=== PATIENT | male | born 1935 | race Caucasian/White ===

== ENCOUNTER → 2017-10-18 08:12 | Day surgery (SDC) | payer MEDICARE, OTHER ==
[~2017-10-18 08:12] MED LIST: Diazepam TAB(*) 5 MG ONE; Heparin 2 UNITS/ML IVPREMIX* 3,000 ML IV ONE; Heparin(*) 1000 UNIT/ML 10 ML VIAL CATH LAB IV ONE; Iodixanol* (CONTRAST) 320 MG/ML 100 ML SDV ONE; Lidocaine 1%* 5 ML VIAL ONE; Midazolam* 1 MG/ML 10 ML VIAL (10 MG) ONE; NS 0.9% 1000 ML* 1,000 ML IV SCH; VERAPAMIL 2.5 MG/ML 2 ML VIAL ** 5 mg/2 ml ONE; fentaNYL* 50 MCG/ML 2 ML VIAL (100 MCG VIAL) ONE; nitroGLYCERIN DRIP* 25,000 MCG/250 ML BTL ONE
--- NOTE | 2017-10-19 14:37 | CATH ---
CC: Isai Mccracken MD of [facility]; Mann Rahman of [facility]; Dr. Silvio Rcohe III, MD. CARDIAC CATHETERIZATION: DATE OF PROCEDURE: 10/18/2017 INDICATION FOR THE PROCEDURE: Asked by Dr. Isai Mccracken to perform diagnostic coronary arteriography in patient in workup for TAVR procedure. PROCEDURE: Coronary arteriography via right radial artery approach. PREPROCEDURE BLOOD TEST RESULTS: Hemoglobin and hematocrit of 14 and 41 with a platelet count of 206,000. BUN and creatinine of 30 and 1.2. Sodium 140, potassium of 4.4, chloride 102, bicarb 28. EQUIPMENTS UTILIZED: 1. Right radial artery sheath: A 6-German Glidesheath. 2. Diagnostic coronary catheter with a 5-German 4 curved TIG catheter and a 5- German 3.5 FL left diagnostic catheter, a 5-German IL 3.5 curved Heartrail III catheter. 3. The guidewires utilized included a 260 length Rahman curved guidewire and a 145 length Wholey wire. MEDICATIONS GIVEN: Included radial artery cocktail including 3 mg of verapamil , 300 mcg of nitroglycerin and 3000 units of heparin intraarterial. The patient was interviewed and examined in the holding area where the risks and benefits were explained. The right radial artery was assessed under ultrasound and found to be of a size approachable for the procedure. DESCRIPTION OF PROCEDURE: The patient was brought to the cardiovascular laboratory where a formal time-out was performed. The patient was prepped and draped in sterile fashion. Right radial artery was anesthetized with 1% lidocaine and under ultrasound guidance, the right radial artery was cannulated and the sheath was placed. Of note, there was tortuosity seen within the brachial area and a subclavian area necessitating utilizing theWholey wire to get the catheters into the ascending aorta. Catheter exchanges were made via exchange length Rahman wire. The left coronary artery had to be eventually cannulated utilizing a 5-German Heartrail III IL 3.5 curved guide catheter. At the end of the case, the catheter and sheath removed and hemostasis was obtained with a Vasc Band, the reverse Barbeau was a B. The total contrast used was a 125 cc of Visipaque dye. The radiation exposure included 13.8 minutes of fluoro time. The air kerma radiation was 2129 milligray. The DAP radiation was 12,614 microgray per meter square. RESULTS: CORONARY ARTERIOGRAPHY: A. Right coronary artery: The right coronary artery supplied several acute marginal branches with collateral blood flow seen from one acute marginal branch down to an artery of the inferior surface of the heart that may indeed be the posterior descending artery. It is unclear whether or not the right coronary artery appears as a dominate vessel. Proximal portion of the right coronary artery had moderate to significant disease with a proximal stenosis of as much as 70% in its worst view. This led to an area of aneurysmal dilatation proximally before the first moderate size acute marginal branch, which was the one that supplied collateral blood flow to the vessel on the inferior surface of the heart. The continuation of the right coronary artery after this point had moderate disease with an area of 35 to 40% narrowing noted right after a second acute marginal branch. The artery ended in a low lying acute marginal branch. As mentioned, it is unclear whether or not this was a right dominate system with a total occlusion somewhere along its course versus left dominate system. B. Left coronary artery: 1. Left Main: There was calcification seen within the left main as well as the proximal LAD and proximal circumflex. The distal left main appeared to have a narrowing that in some views appeared to be as much as 35 to 40%, appearing less in other views. 2. Left Anterior Descending Artery: There appeared to be heavy calcification within the proximal to mid portion with proximal narrowing noted to be 30 to 35%. There was an abrupt caliber change of 40 to 45% in the mid segment of the vessel as it traversed to the apical region. The mid to distal LAD had moderate disease with multiple areas of 45 to 50% seen. The first diagonal branch was a moderate-sized vessel with areas of calcification and moderate stenosis proximally at 45 to 50% followed by an area of 55% in the mid to distal area. Of note, this mid to distal artery clearly appeared to have a change in the caliber in its mid portion. 3. Circumflex artery - a vessel that appeared to supply a very thin first obtuse marginal branch followed by a bifurcating mid to low lying moderate to large sized obtuse marginal branch. Of note, the continuation of the circumflex was poorly visualized and this may be an area of total occlusion to a left dominate circumflex with collateralization to the distal branch supplied by the acute marginal branch of the right coronary artery as described above. The superior branch of the bifurcating low lying obtuse marginal branch appeared to have a narrowing in its ostium of perhaps 40% with haze and calcium. The lower branch had mild ostial narrowing in that region as well. It appeared to be only 30%. 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 Of note, abrupt caliber changes are seen in the mid portion of the LAD the first diagonal and the second obtuse marginal branch with a possible aneurysmal areas of dilatation proximally noted. Moderate coronary artery disease throughout these vessels as described above. This information was shared with Dr. Isai Mccracken as well as sending the actual images up to [facility] for his review. Decisions on timing of the TAVR procedure and need for any other type of revascularization will be addressed by Dr. Mccracken after his review of the coronary anatomy. Given this finding, recommendations for aggressive risk factor management with cholesterol lowering agents and aspirin therapy will be continued as they have been carefully watched by Dr. Silvio Roche, his family doctor and Dr. Mann Rahman. [id number]/[facility] #: [id number] NOELLE
--- NOTE | 2017-10-19 21:40 | LTR ---
CC: Dr. Lelo Rahman at the [facility]; Dr. Silvio Roche III; Isai Mccracken M.D. CORRESPONDENCE LETTER: DATE OF LETTER: 10/19/17 To: Isai Mccracken M.D. [facility] RE: Baljinder Cardenas : 35 Dear Isai: This is a letter just to review my telephone discussion with you regarding the outpatient cardiac cat heterization on the patient you saw in consultation for the TAVR procedure and wished me to perform. As per my discussion with you, he underwent the cardiac catheterization via the right radial artery. There was tortuosity in the brachial and subclavian area, but I was able to cannulate the coronarie s. Interestingly, I had a difficult time differentiating whether or not this was a right dominant sy stem with a totally occluded mid portion with retrograde filling via an acute marginal branch to an a rtery on the bottom surface to the heart that I presumed was the PDA or whether or not this was a lef t dominant circumflex with a total occlusion after a [id number] size mid-bifurcating obtuse ma rginal branch. In studying the films further, I probably favor the latter and that I believe I see s ome continuation to circumflex that may be would have gone down to the bottom area. Still having roverto d this, his other coronary artery disease involved a moderate area of stenosis in his ostial/proximal left main, not critical in nature from multiple views. He has heavy calcifications within the left main LAD proximal and proximal circumflex and there appeared to be almost aneurysmal dilatations to t hese proximal sections with the midsegment having a change in caliber noted. With respect to the cir cumflex, it seemed to be a little way down to the bifurcating obtuse marginal branch. Still, having said that, there was moderate disease throughout the LAD/circ system, but I did not see any focal cri tical lesion of greater than 70% to 75% in any artery that would be approached interventionally. The refore, the only thing I note is the fact that he has the totally occluded blood flow to the inferior wall distribution and with collateralization via an acute marginal branch of the right coronary madelyn ry. The right coronary artery itself does have diffuse proximal disease, but at least into what almo st appears to be an aneurysmal area in its proximal portion. The degree of narrowing noted within th is proximal segment was borderline significant in nature and realizing that there is collateral blood flow to the artery on the inferior surface to the heart. This may be an area that at some point in time would need to be addressed with respect to a focal stenting leading up to the aneurysm, but ladonna rly not including the aneurysmal area. As always, if you have any questions regarding the case, plea se feel free to speak with me. Hopefully, this will help in your guidance toward your TAVR procedure . Given his coronary artery disease obvious continued risk factor management, which has already been pu rsued through Dr. Roche and Dr. Rahman, need to be maintained to try to prevent further progressi on of his underlying coronary artery disease. Sincerely, [id number]/[facility] #: [id number]
== END | disposition home or self-care (01) ==
LOC: CHICATH 08:12
PROVIDERS: ATTEND Internal Medicine Cardiovascular Disease
DX: I35.0 Nonrheumatic aortic (valve) stenosis (principal); I25.10 Atherosclerotic heart disease of native coronary artery without angina pectoris; I25.82 Chronic total occlusion of coronary artery; I50.32 Chronic diastolic (congestive) heart failure; E78.5 Hyperlipidemia, unspecified; E11.9 Type 2 diabetes mellitus without complications; I11.0 Hypertensive heart disease with heart failure; J44.9 Chronic obstructive pulmonary disease, unspecified; R06.02 Shortness of breath; E66.01 Morbid (severe) obesity due to excess calories; G47.33 Obstructive sleep apnea (adult) (pediatric)
CPT/HCPCS: 93454; A9270-GY; J1644; J2250; J3010

== ENCOUNTER 2018-02-23 04:52 | Emergency (ER) | payer MEDICARE, OTHER ==
--- NOTE | 2018-02-23 05:19 | ED ---
GI/ HPI - HPI Summary HPI Summary: This patient is an 82 year old M presenting to ED with a chief complaint of urinary retention and hematuria since 0100 this morning. The patient rates the pain 5/10 in severity. Symptoms aggravated by nothing. Symptoms alleviated by nothing. Patient sees Dr. Montoya. Hx of growth on his L kidney (found 1 year ago). - History of Current Complaint Time Seen by Provider: 02/23/18 04:56 Stated Complaint: UROGENITAL PROBLEMS Hx Obtained From: Patient Onset/Duration: Started Hours Ago, Still Present Timing: Constant, Lasting Hours Severity: Moderate Current Severity: Moderate Associated Signs and Symptoms: Positive: Hematuria, Other: - urinary retention - Allergy/Home Medications Allergies/Adverse Reactions: Allergies Allergy/AdvReac Type Severity Reaction Status Date / Time amoxicillin Allergy Unknown Verified 12/31/17 12:23 Reaction Details cefuroxime [From Ceftin] Allergy Unknown Verified 12/31/17 12:23 Reaction Details clavulanic acid Allergy Unknown Verified 12/31/17 12:23 [From Augmentin] Reaction Details Penicillins Allergy Unknown Verified 12/31/17 12:23 Reaction Details SULFA Allergy Unknown Uncoded 12/31/17 12:20 Reaction Details PMH/Surg Hx/FS Hx/Imm Hx Endocrine/Hematology History: Reports: Hx Diabetes - TYPE 2 Cardiovascular History: Reports: Hx Hypertension History: Reports: Hx Renal Disease - left kidney mass Denies: Hx Dialysis - Cancer History Cancer Type, Location and Year: 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 GENERAL: Patient is a well-developed and nourished MALE who is lying comfortable in the stretcher. Patient is not in any acute respiratory distress. HEAD AND FACE: No signs of trauma. No ecchymosis, hematomas or skull depressions. No sinus tenderness. EYES: PERRLA, EOMI x 2, No injected conjunctiva, no nystagmus. EARS: Hearing grossly intact. Ear canals and tympanic membranes are within normal limits. MOUTH: Oropharynx within normal limits. NECK: Supple, trachea is midline, no adenopathy, no JVD, no carotid bruit, no c- spine tenderness, neck with full ROM. CHEST: Symmetric, no tenderness at palpation LUNGS: Clear to auscultation bilaterally. No wheezing or crackles. CVS: Regular rate and rhythm, S1 and S2 present, no murmurs or gallops appreciated. ABDOMEN: Soft, non-tender. No signs of distention. No rebound no guarding, and no masses palpated. Bowel sounds are normal. EXTREMITIES: FROM in all major joints, no edema, no cyanosis or clubbing. Trace pedal edema. NEURO: Alert and oriented x 3. No acute neurological deficits. Speech is normal and follows commands. SKIN: Dry and warm : Stauffer catheter. Hematuria. Left renal mass. Triage Information Reviewed: Yes Vital Signs On Initial Exam: Initial Vitals Temp Pulse Resp BP Pulse Ox 99.3 F 71 15 118/54 95 02/23/18 05:13 02/23/18 05:13 02/23/18 05:13 02/23/18 05:13 02/23/18 05:13 Vital Signs Reviewed: Yes GIGU Course/Dx - Course Assessment/Plan: This patient is an 82 year old M presenting to ED with a chief complaint of urinary retention and hematuria since 0100 this morning. This patient will be discharged with instructions to follow up with Dr. Montoya on Saturday. - Diagnoses Provider Diagnoses: Urinary retention, Hematuria Discharge - Sign-Out/Discharge Documenting (check all that apply): Patient Departure - discharge - Discharge Plan Condition: Stable Disposition: HOME Patient Education Materials: Stauffer Catheter Placement and Care (ED) Referrals: Jesús Montoya MD [Medical Doctor] - 02/24/18 () Additional Instructions: RETURN TO THE EMERGENCY DEPARTMENT FOR CHANGING OR WORSENING SYMPTOMS. FOLLOW UP WITH PCP IN 1-[address] FOLLOW UP WITH DR. MONTOYA ON 02/24/18. - Attestation Statements Document Initiated by Scribe: Yes Documenting Scribe: Ran Casarez Provider For Whom Scribe is Documenting (Include Credential): Elizabeth Shah MD Scribe Attestation: Ran Fatima, scribed for Elizabeth Shah MD on 02/23/18 at 0544. Status of Scribe Document: Ready
[2018-02-23 05:36] LABS: Urine Appearance Cloudy; Urine Blood 3+ (Negative); Urine Ketones Negative (Negative); Urine Protein 2+(100 mg/dL) (Negative); Urine Red Blood Cell 3+(>10/hpf) (Absent); Urine Specific Gravity 1.015 (1.010-1.030); Urine Urobilinogen Negative (Negative); Urine White Blood Cell 1+(6-10/hpf) (Absent)
[2018-02-23 05:37] LABS: Urine Color Red
[2018-02-23 07:00] VITALS: BP 133/66
== END 2018-02-23 08:37 | disposition home or self-care (01) ==
LOC: ED 04:52
DX: R33.9 Retention of urine, unspecified (principal); R31.9 Hematuria, unspecified; E11.9 Type 2 diabetes mellitus without complications; I10 Essential (primary) hypertension; Z85.820 Personal history of malignant melanoma of skin; Z88.2 Allergy status to sulfonamides; Z87.891 Personal history of nicotine dependence; Z88.0 Allergy status to penicillin
CPT/HCPCS: 51702; 81003; 81015; 87086; 99282

== ENCOUNTER 2019-05-07 10:12 | Emergency (ER) | payer MEDICARE, OTHER ==
[2019-05-07 10:46] LABS: ABS Eosinophils 0.2 10^3/ul (0-0.6); ABS Lymphocytes 1.3 10^3/ul (1.0-4.8); ABS Monocytes 0.7 10^3/ul (0-0.8); ABS Neutrophils 7.6 10^3/ul (1.5-7.7); Eosinophil % 1.7 %; Hematocrit 38 % (42-52); Hemoglobin 12.6 g/dL (14.0-18.0); Mean Corpuscular HGB Conc 34 g/dL (31-36); Mean Corpuscular Hemoglobin 33 pg (27-31); Mean Corpuscular Volume 97 fL (80-94); Mean Platelet Volume 7.4 fL (7.4-10.4); Platelet Count 161 10^3/uL (150-450); Red Blood Count 3.87 10^6 /uL (4.18-5.48); Red Cell Distribution Width 15 % (10-15); White Blood Count 9.8 10^3/uL (3.5-10.8)
[2019-05-07 10:56] LABS: Albumin 4.1 g/dL (3.2-5.2); Calcium 9.1 mg/dL (8.6-10.3); Magnesium 1.8 mg/dL (1.9-2.7); Total Bilirubin 0.7 mg/dL (0.2-1.0)
[2019-05-07 11:02] LABS: Albumin/Globulin Ratio 1.2 (1-3); BUN/Creatinine Ratio 27.6 (8-20); C Reactive Protein 5.34 mg/L (<8.01); EGFR African American 45.5 (>60); EGFR Non-African American 37.6 (>60); Globulin 3.4 g/dL (2-4); Total Protein 7.5 g/dL (6.4-8.9)
[2019-05-07] MEDS ORDERED: NS 0.9% 1000 ML** 1,000 ML IV ONE (11:28)
--- OUTSIDE RECORDS SUMMARY | 2019-05-07 11:30 | XMS REPORT | Summary of Care ---
:1935 Author Organization [facility] Address [address] [place] [address] Care Team Providers Name Role Phone Silvio Roche MD Primary Care Provider Reason for Referral Diagnostic Radiology (STAT) Status Reason Specialty Diagnoses / Referred By Referred To Procedures Contact Contact Authorized Radiology Diagnoses Renal cell carcinoma of left kidney Lexie Knowles MD Procedures IR Vascular Access Insertion or Removal [address] [place] [address] Email: [email or web address] Reason for Visit Reason Comments Follow-up Encounter Details Date Type Department Care Team Description 05/06/2019 Office Visit Hematology Oncology Mariajose Hunter MD Left renal mass (Primary Dx); [address] [facility] Other fatigue; [place], [place] Renal cell carcinoma of left kidney; [id number] Renal cell carcinoma, unspecified laterality [phone] Allergies Active Allergy Reactions Severity Noted Date Comments Amoxicillin-Pot Clavulanate 01/31/2017 Cefuroxime Axetil 01/31/2017 Penicillins 01/31/2017 Clopidogrel Other (See Comments) 12/08/2018 hematuria Sulfa Antibiotics 01/31/2017 documented as of this encounter (statuses as of 05/06/2019) Medications Medication Sig Dispensed Refills Start Date End Date Status lisinopril Take 2.5 mg by 0 Active (PRINIVIL,ZESTRIL) 2.5 mouth every MG tablet morning dilTIAZem (CARTIA XT) Take 120 mg by 0 Active 120 MG 24 hr capsule mouth every morning albuterol (PROAIR HFA) Inhale 2 puffs 0 Active 108 (90 Base) MCG/ACT into the lungs inhaler every 4 (four) hours as needed spironolactone Take 25 mg by 0 Active (ALDACTONE) 25 MG mouth every tablet morning tolterodine (DETROL LA) Take 4 mg by 0 Active 4 MG 24 hr capsule mouth Two Times Daily atorvastatin (LIPITOR) Take 40 mg by 0 Active 20 MG tablet mouth nightly vitamin B-12 Take 200 mcg by 0 Active (CYANOCOBALAMIN) 100 mouth every MCG tablet morning [place]-3 Fatty Acids Take 1,000 mg by 0 Active (FISH OIL) 1000 MG CAPS mouth Two Times Daily fluoxetine (PROZAC) 40 Take 40 mg by 0 Active MG capsule mouth every morning atenolol (TENORMIN) 25 Take 50 mg by 0 Active MG tablet mouth Two Times Daily Multiple Take 1 tablet by 0 Active Vitamins-Minerals mouth every (CENTRUM ADULTS PO) morning magnesium gluconate Take 500 mg by 0 Active (MAGONATE) 500 MG mouth every tablet morning OneTouch (DELICA) MISC Test Twice A Day 0 12/31/2014 Active fine lancets Or as Needed glucose blood ([employer] Corporation[employer]CH check blood 0 12/31/2014 Active VERIO) test strip sugar twice daily and as needed Blood Glucose use twice a day 0 12/31/2014 Active Monitoring Suppl and prn (SuddenValues VERIO IQ SYSTEM) w/Device KIT Oxygen GAS Used w/CPAP at 0 02/26/2014 Active night aspirin 81 MG tablet Take 81 mg by 0 Active mouth every morning Umeclidinium [place] Inhale 1 Inhaler 0 Active (INCRUSE ELLIPTA) 62.5 into the lungs MCG/INH AEPB every morning Gabapentin 100 MG Oral Take 1 capsule 21 capsule 0 03/24/2019 Active Capsule (NEURONTIN) by mouth Three times daily for 7 days documented as of this encounter (statuses as of 05/06/2019) Active Problems Problem Noted Date Renal cell carcinoma of left kidney 03/05/2019 Chronic obstructive pulmonary disease (COPD) 02/19/2017 DENZEL (obstructive sleep apnea) 02/19/2017 Overview: Uses home CPAP machine Nonrheumatic aortic valve stenosis 02/19/2017 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 02/19/2017 Essential hypertension 02/19/2017 Hyperlipidemia associated with type 2 diabetes mellitus 02/19/2017 Obesity (BMI 35.0-39.9 without comorbidity) 02/19/2017 Low back pain 02/04/2013 Depressive disorder 08/04/2012 Generalized osteoarthritis 01/01/2012 Anemia 06/27/2011 Acquired kyphosis 03/28/2011 documented as of this encounter (statuses as of 05/06/2019) Resolved Problems Problem Noted Date Resolved Date Aggression aggravated 03/23/2019 03/24/2019 Overview: Post op due to anesthesia Endoleak post endovascular aneurysm repair 02/11/2019 03/23/2019 Overview: Added automatically from request for surgery [id number] 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 03/23/2019 Left renal mass 04/18/2017 03/23/2019 Abdominal aortic aneurysm (AAA) greater than 5.5 cm in diameter 02/19/2017 in male Overview: 8.7 x 7.4 cm infrarenal AAA (abdominal aortic aneurysm) 02/19/2017 03/23/2019 Type 2 diabetes mellitus 02/04/2013 03/23/2019 Aortic valve disorder 08/01/2011 03/23/2019 Mitral valve disorder 08/01/2011 03/23/2019 Lymphedema 06/27/2011 03/23/2019 Hyperlipidemia 12/07/2009 03/23/2019 Recurrent major depression in full remission 12/07/2009 03/23/2019 documented as of this encounter (statuses as of 05/06/2019) Social History Tobacco Use Types Packs/Day Years Used Date Former Smoker Cigarettes 1 25 Quit: 02/19/1998 Smokeless Tobacco: Never Used Alcohol Use Drinks/Week oz/Week Comments No Sex Assigned at Date Recorded Not on file Job Start Date Occupation Industry Not on file Not on file Not on file Travel History Travel Start Travel End No recent travel history available. documented as of this encounter Last Filed Vital Signs Vital Sign Reading Time Taken Comments Blood Pressure 130/76 05/06/2019 3:25 PM EST Pulse 60 05/06/2019 3:25 PM EST Temperature 36.8 05/06/2019 3:25 PM C (98.2 EST F) Respiratory Rate 18 05/06/2019 3:25 PM EST Oxygen Saturation 97% 05/06/2019 3:25 PM EST Inhaled Oxygen Concentration - - Weight 106.7 kg (235 lb 3.2 oz) 05/06/2019 10:57 AM EST Height - - Body Mass Index 37.96 03/06/2019 10:15 AM EST documented in this encounter Progress Notes Lexie Knowles MD - 05/06/2019 10:45 AM EST [facility] NOTE ID: Baljinder Cardenas is a 84 y.o. male PCP: Silvio Roche III, MD HISTORY OF PRESENT ILLNESS: Diagnosis: Clear Cell Carcinoma of the left kidney, Grade 3, [id number] Date of Diagnosis: 12/08/2018 Current Treatment: - Adjuvant Nivolumab 480 mg every 4 weeks - C1 05/06/2019 as per PROSPER [facility]- Clinical trial- " [id number] - A Phase 3 Randomized Study Comparing Perioperative Nivolumab vs. Observation in Patients with Renal Cell Carcinoma Undergoing Nephrectomy" - planned adjuvant Nivolumab of 9 cycles Previous Treatment: -1 cycle of pre-operative Nivolumab- 03/05/2019 - left robotic assisted radical nephrectomy, 03/23/2019- path showed PT3 a- involvement of renal vein Oncologic History: Baljinder Is a 83-year-old male who carries the history of abdominal aortic aneurysms status post engraftment, COPD, and joint disease, diabetes, hypertension, obesity, aortic valve stenosis is status post replacement who has been diagnosed with the left renal clear cell carcinoma. Patient met with urology and has agreed to be enrolled in the prosper renal cell carcinoma trial which involves the use ofimmunotherapy with Opdivo in the perioperative setting and he has been randomized to the study drug arm. Interval History: He was last seen in clinic on 03/05/2019 - at that visit he received Opdivo 1st cycle as perioperative treatment as per [facility]OSPER [facility]- He then went for surgery- had a left radical nephrectomy robotic assisted on 03/23/2019 - final path showed clear cell carcinoma, pT3a, Grade 3, with renal vein involvement. He has recovered well from surgery - no new issues noted. His hearing loss is at baseline- uses a cane to ambulate, though unable to carry out rigorous ADL' s. Accompanied by his friend today. ECOG Performance Status: (2) Ambulatory and capable of self care, unable to carry out work activity,up and about > 50% or waking hours ALLERGIES: Allergies Allergen Reactions Augmentin [Amoxicillin-Pot Clavulanate] Ceftin [Cefuroxime Axetil] Penicillins Plavix [Clopidogrel] Other (See Comments) hematuria Sulfa Antibiotics MEDICATIONS: Current Outpatient Medications on File Prior to Visit Medication Sig Dispense Refill albuterol (PROAIR HFA) 108 (90 Base) MCG/ACT inhaler Inhale 2 puffs into the lungs every 4 (four) hours as needed atenolol (TENORMIN) 25 MG tablet Take 50 mg by mouth Two Times Daily atorvastatin (LIPITOR) 20 MG tablet Take 40 mg by mouth nightly Blood Glucose Monitoring Suppl (SynappioIO IQ SYSTEM) w/Device KIT use twice a day and prn dilTIAZem (CARTIA XT) 120 MG 24 hr capsule Take 120 mg by mouth every morning fluoxetine (PROZAC) 40 MG capsule Take 40 mg by mouth every morning glucose blood (Predikt) test strip check blood sugar twice daily and as needed lisinopril (PRINIVIL,ZESTRIL) 2.5 MG tablet Take 2.5 mg by mouth every morning magnesium gluconate (MAGONATE) 500 MG tablet Take 500 mg by mouth every morning Multiple Vitamins-Minerals (CENTRUM ADULTS PO) Take 1 tablet by mouth every morning [place]-3 Fatty Acids (FISH OIL) 1000 MG CAPS Take 1,000 mg by mouth Two Times Daily OneTouch (DELICA) MISC fine lancets Test Twice A Day Or as Needed Oxygen GAS Used w/CPAP at night spironolactone (ALDACTONE) 25 MG tablet Take 25 mg by mouth every morning tolterodine (DETROL LA) 4 MG 24 hr capsule Take 4 mg by mouth Two Times Daily Umeclidinium [place] (INCRUSE ELLIPTA) 62.5 MCG/INH AEPB Inhale 1 Inhaler into the lungs every morning vitamin B-12 (CYANOCOBALAMIN) 100 MCG tablet Take 200 mcg by mouth every morning aspirin 81 MG tablet Take 81 mg by mouth every morning Gabapentin 100 MG Oral Capsule (NEURONTIN) Take 1 capsule by mouth Three times daily for 7 days 21 capsule 0 No current facility-administered medications on file prior to visit. PMH: Past Medical History: Diagnosis Date AAA (abdominal aortic aneurysm) 02/19/2017 AAA (abdominal aortic aneurysm) Abdominal aortic aneurysm (AAA) greater than 5.5 cm in diameter in male 02/19/2017 8.7 x 7.4 cm infrarenal Acquired kyphosis Actinic keratosis Aggression aggravated 03/23/2019 Post op due to anesthesia Aortic aneurysm of unspecified site, without rupture Bladder irritability Cervicalgia Chronic obstructive pulmonary disease COPD (chronic obstructive pulmonary disease) Degenerative joint disease Depressive disorder Dermatophytosis Diabetes mellitus Disorder of kidney and ureter Edema Electrocardiogram abnormal Endoleak post endovascular aneurysm repair 02/11/2019 Added automatically from request for surgery [id number] Gastro-esophageal reflux disease without esophagitis H/O echocardiogram Hypercholesterolemia Hyperlipidemia Hypertension Low back pain Lumbago Lymphedema Mitral valve disorder 08/01/2011 Murmur, cardiac Nonrheumatic aortic (valve) stenosis Obesity Pneumonia Recurrent major depression in full remission 12/07/2009 Rhinitis, allergic 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 Sleep apnea Tinea pedis Tinea unguium Past Surgical History: Procedure Laterality Date CARDIAC VALVE REPLACEMENT Done in [facility] Left knee repair Melanoma HI ENDOVASCULAR REPAIR ILIAC ARTERY W ILIO-ILIAC PROSTHESIS Left 2018 Procedure: ENDOVASCULAR REPAIR ILIAC ARTERY W ILIO-ILIAC PROSTHESIS [[id number]]; ilac limb extension and possible embolization; Surgeon: Melly Gandhi MD; Location: OR [facility]; Service: Vascular; Laterality: Left; Prostate Operation RADIESSE INJECTION PHARYNGOPLASTY Right ear surgery for skin cancer TONSILLECTOMY Patient Active Problem List Diagnosis Chronic obstructive pulmonary disease (COPD) DENZEL (obstructive sleep apnea) Nonrheumatic aortic valve stenosis 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 Essential hypertension Hyperlipidemia associated with type 2 diabetes mellitus Obesity (BMI 35.0-39.9 without comorbidity) Generalized osteoarthritis Depressive disorder Anemia Renal cell carcinoma of left kidney Acquired kyphosis Low back pain SOCIAL AND FAMILY HISTORY: Social History Socioeconomic History Marital status: Spouse name: None Number of children: None Years of education: None Highest education level: None Occupational History Occupation: Retired Social Needs Financial resource strain: None Food insecurity: Worry: None Inability: None Transportation needs: Medical: None Non-medical: None Tobacco Use Smoking status: Former Smoker Packs/day: 1.00 Years: 25.00 Pack years: 25.00 Types: Cigarettes Last attempt to quit: 02/19/1998 Years since quittin.2 Smokeless tobacco: Never Used Substance and Sexual Activity Alcohol use: No Drug use: No Sexual activity: Not Currently Lifestyle Physical activity: Days per week: None Minutes per session: None Stress: None Relationships Social connections: Talks on phone: None Gets together: None Attends jewish service: None Active member of club or organization: None Attends meetings of clubs or organizations: None Relationship status: None Intimate partner violence: Fear of current or ex partner: None Emotionally abused: None Physically abused: None Forced sexual activity: None Other Topics Concern None Social History Narrative None family history includes Arthritis in his father and mother; Diabetes in his maternal grandmother andpaternal grandmother; Hypertension in his mother. REVIEW OF SYSTEMS: Review of Systems Constitutional: Negative for chills, fever and weight loss. HENT: Negative for hearing loss and tinnitus. Eyes: Negative for blurred vision and double vision. Respiratory: Negative for cough. Cardiovascular: Negative for chest pain, palpitations and claudication. Gastrointestinal: Negative for heartburn, nausea and vomiting. Genitourinary: Negative for dysuria, frequency and urgency. Musculoskeletal: Negative for myalgias and neck pain. Skin: Negative for rash. Neurological: Negative for dizziness, tingling and headaches. Psychiatric/Behavioral: Negative for depression, substance abuse and suicidal ideas. PHYSICAL EXAMINATION: Vital signs* Vitals: 05/06/19 1057 05/06/19 1145 05/06/19 1151 BP: 173/84 148/90 149/86 BP Location: Right arm Right arm Patient Position: Sitting Sitting Cuff size: Adult Large Adult Large Pulse: 69 69 Resp: 16 17 Temp: 36.6 C (97.9 F) 36.7 C (98 F) TempSrc: Oral Oral SpO2: 98% 96% Weight: 106.7 kg (235 lb 3.2 oz) Physical Exam HENT: Head: Normocephalic. Comments: Hearing loss bilateral Nose: Nose normal. Eyes: Pupils: Pupils are equal, round, and reactive to light. Cardiovascular: Rate and Rhythm: Normal rate. Heart sounds: No murmur. Abdominal: General: Abdomen is flat. Palpations: Abdomen is soft. Skin: General: Skin is warm. Neurological: Mental Status: He is alert. DATA REVIEW: Lab Results Component Value Date HGB 12.4 (L) 05/06/2019 HCT 37.5 (L) 05/06/2019 WBC 10.8 (H) 05/06/2019 PLT 158 05/06/2019 Lab Results Component Value Date NEUTOPHILPCT 74 05/06/2019 LYMPHOPCT 15 05/06/2019 MONOPCT 8 05/06/2019 EOSPCT 2 05/06/2019 Lab Results Component Value Date NA 135 (L) 05/06/2019 K 5.7 (H) 05/06/2019 CL 104 05/06/2019 BICARBONATE 19 (L) 05/06/2019 GLUCOSE 105 05/06/2019 BUN 50 (H) 05/06/2019 CREATININE 1.73 (H) 05/06/2019 Lab Results Component Value Date PROT 7.6 05/06/2019 ALBUMIN 4.1 05/06/2019 AST 13 05/06/2019 ALT 8 05/06/2019 TBILI 0.5 05/06/2019 ALKPHOS 78 05/06/2019 ASSESSMENT & PLAN: Briefly, this is an 84 year old male with PMH as mentioned above, who has a diagnosis of left renal cell carcinoma s/p 1 cycle of perioperative Nivolumab on 03/05/2019 , followed by nephrectomy on 03/23/2019, who now presents today for assessment for adjuvant Nivolumab as per "[id number] - A Phase 3 Randomized Study Comparing Perioperative Nivolumab vs. Observation in Patients with Renal Cell Carcinoma Undergoing Nephrectomy ([facility]OSPER [facility])". Patient is doing well thus far- stated he tolerated the first cycle of Nivolumab without any side effects. No diarrhea or fatigue noted. No concern for dermatitis or pulmonary toxicity. Labs pending from today- will wait for these and he can continue with Opdivo if everything appears normal. RTC: 06/02- OV, labs and C3 Opdivo The patient was seen and discussed with Dr. Hunter. Lexie Knowles MD Hematology & Oncology Fellow Pager: [phone] May 06, 2019 Certain parts of this note may have been carried over from prior Hematology/ Oncology notes to maintain accuracy of patient's pertinent medical history and continuity of care. The details were verified and edited as appropriate. Mariajose Gibbs MD - 05/06/2019 10:45 AM EST I saw and evaluated the patient Baljinder Cardenas with Dr. Knowles. Discussed with her and agree with her findings and plans as written, along with any supplemental dictated and/or attending documentation in the patient record by myself. The treatment plan was discussed with the patient. Previous Oncologic History, Diagnosis and stage: December 08, 2018-left kidney mass biopsy showed renal cell carcinoma March 05, 2019-I meet with the patient to start immunotherapy as a part of the prosper RCC clinical trial As a part for his diagnosis of renal cell carcinoma March 05, 2019-he was given first doze of opdivo March 23, 2019- Left radical nephrectomy, pathology showed renal cell clear cell carcinoma, [id number] ECOG Performance Status: (2) Ambulatory and capable of self care, unable to carry out work activity,up and about > 50% or waking hours Assessment/Plan- Patient is here today for the follow-up after the surgery. He has had no issues with surgery. He tolerated the procedure well. We are going to continue in the adjuvant immunotherapy for him now. He is here with his friend. We discussed the presence of malignancy in his nephrectomy tissue. Patient's current issues of RCC is getting tt as above and additional work up as mentioned below arepursued. I personally reviewed relevant history pertinent labs, medicines, imaging ( CT, ultrasound). I personally reviewed the films and discussed with radiologist and old records from urology and surgery . Old records were requested. Adverse effects and risks of chemotherapy discussed at length in layman terms including but not limited to nausea, vomiting, alopecia, allergic and serious reactions, as well as risk of low blood counts which may lead to blood transfusions or growth factors and an increased likelihood of infections which can even be serious and fatal rarely. He is aware of t he late effects of chemotherapy including but not limited to leukemogenecity bone marrow failure. Systemic therapy consent- in file for opdivo Orders Placed This Encounter IR Vascular Access Insertion or Removal Standing Status: Future Standing Expiration Date: 08/03/2020 Scheduling Instructions: Use the comment section for radiology exam instructions. Please use this section for patient scheduling and front end web designer instructions only. Please schedule within 1-2 weeks. Order Specific Question: Reason for exam: Answer: Port for chemotherapy access Order Specific Question: Laterality: Answer: No laterality preference Order Specific Question: Number of ports: Answer: Single Order Specific Question: Interpretation? Answer: Immediate T4, free Standing Status: Future Standing Expiration Date: 11/04/2019 T4, free Standing Status: Future Standing Expiration Date: 11/04/2019 Miscellaneous Lab Test (Send Out) Standing Status: Future Standing Expiration Date: 11/04/2019 Order Specific Question: Lab Test requested (enter only one): Answer: clinical trial [id number] Miscellaneous Lab Test (Send Out) Standing Status: Future Standing Expiration Date: 11/04/2019 Order Specific Question: Lab Test requested (enter only one): Answer: as part of study protocol- please draw after infusion is complete Comprehensive metabolic panel TSH CBC and differential Informed patient if he develops any problems or issues prior to rtc then he should give our office acall in addition we have a 24 hour aoc aadc operations staff officer service. Patient was agreeable with plan of care. Also patient and patient did ask questions which were answered to their satisfaction and to the best of our knowledge. Mariajose Hunter MD Pager - [phone] Lab Clerk Department of Hematology Oncology [facility] 05/06/2019 1:20 PM documented in this encounter Plan of Treatment Date Type Specialty Care Team Description 06/03/2019 Office Visit Hematology and Oncology Mariajose Hunter MD [address] [place] [address] [phone] 06/05/2019 Office Visit Vascular Surgery Melly Gandhi MD [address] [address] [phone] 12/04/2019 Office Visit Vascular Surgery Melly Gandhi MD [address] [address] [phone] Name Type Priority Associated Diagnoses Order Schedule T4, free Lab Routine Left renal mass 1 Occurrences starting Other fatigue 05/06/2019 until 11/04/2019 T4, free Lab Routine Renal cell carcinoma 1 Occurrences starting of left kidney 05/06/2019 until 11/04/2019 Miscellaneous Lab Test Lab Routine Renal cell carcinoma 1 Occurrences starting (Send Out) of left kidney 05/06/2019 until 11/04/2019 Miscellaneous Lab Test Lab Routine Renal cell carcinoma 1 Occurrences starting (Send Out) of left kidney 05/06/2019 until 11/04/2019 IR Vascular Access Imaging STAT Renal cell carcinoma Expected: 05/06/2019, Insertion or Removal of left kidney Expires: 08/03/2020 Protime-INR Lab STAT Renal cell carcinoma, 1 Occurrences starting unspecified laterality 05/06/2019 until 11/04/2019 Basic metabolic panel Lab STAT Renal cell carcinoma, 1 Occurrences starting unspecified laterality 05/06/2019 until 11/04/2019 Health Maintenance Due Date Last Done Comments Lipid Disorder Screening 1935 Diabetic Foot Exam 1953 Dilated Retinal Exam 1953 Urine Microalbumin 1953 Hepatitis B Vaccines (1 of 3 - 1954 Risk 3-dose series) Pneumococcal Vaccine: 65+ Years (1 2000 of 2 - PCV13) MMR Vaccines (1 of 1 - Standard 03/13/2012 series) Varicella Vaccines (1 of 2 - 03/13/2012 02/14/2012 2-dose childhood series) Zoster Vaccines (2 of 3) 04/10/2012 02/14/2012 DTaP,Tdap,and Td Vaccines (2 - Td) 08/14/2013 07/17/2013 Hemoglobin A1c 08/20/2017 02/19/2017 Influenza Vaccine 12/16/2018 HIB Vaccines Aged Out No longer eligible based on patient's age to complete this topic Hepatitis A Vaccines Aged Out No longer eligible based on patient's age to complete this topic IPV Vaccines Aged Out No longer eligible based on patient's age to complete this topic Pneumococcal Vaccine: Pediatrics Aged Out No longer eligible based on (0 to 5 Years) and At-Risk patient's age to complete Patients (6 to 64 Years) this topic documented as of this encounter Implants Implanted Type Area Ground Operations Supervisor Device Shelf Model / Identifier Expiration Serial / Date Lot Vas Lori - Proglide Perclose - [id number] Left: GUIDANT KYARA 10/15/2018 [id number] / Implanted: Qty: 2 on 02/22/2017 by Melly Gandhi MD at OR [facility] Arterial / [id number] Vas Lori - Proglide Perclose - [id number] Right: Groin GUIDANT KYARA 2018 [id number] / Implanted: Qty: 2 on 02/22/2017 by Melly Gandhi MD at OR [facility] / [id number] Contralat Limb [id number] - [id number] Left: MEDTRONIC XOMED [id number] / Implanted: Qty: 1 on 02/22/2017 by Melly Gandhi MD at OR [facility] Arterial [id number] / Description:Left limb stent graft Contralat Limb [id number] - [id number] Right: MEDTRONIC XOMED 03/2018 [id number] / Implanted: Qty: 1 on 02/22/2017 by Melly Gandhi MD at OR [facility] Arterial [id number] / Vas Lori - Proglide Perclose - [id number] Right: Groin GUIDANT KYARA 2018 [id number] / Implanted: Qty: 2 on 02/22/2017 by Melly Gandhi MD at OR [facility] / [id number] Patch Vasc Xenosure [id number] - [id number] Right: Groin LEMAITRE 2022 [id number] / Implanted: Qty: 1 on 02/22/2017 by Melly Gandhi MD at OR [facility] VASCULAR / [id number] Graft Stent Bif [id number] - [id number] N/A: Aorta MEDTRONIC XOMED 10/24/2018 [id number] / Implanted: Qty: 1 on 02/22/2017 by Melly Gandhi MD at OR [facility] [id number] / Emb- [place] 34 Liquid Embolic. - [id number] N/A: Aorta COVIDIEN 05/16/2019 [id number] / Implanted: Qty: 1 on 02/19/2019 by Melly Gandhi MD at OR [facility] [id number] / [id number] Emb- [place] 34 Liquid Embolic. - [id number] N/A: Aorta COVIDIEN 08/11/2021 [id number] / Implanted: Qty: 1 on 02/19/2019 by Melly Gandhi MD [facility] [facility] [id number] / [id number] Emb- [place] 34 Liquid Embolic. - [id number] N/A: Aorta COVIDIEN 02/27/2021 [id number] / Implanted: Qty: 1 on 02/19/2019 by Melly Gandhi MD at OR [facility] [id number] / [id number] Emb- [place] 18 Liquid Embolic. - [id number] N/A: Aorta COVIDIEN 07/01/[id number] / Implanted: Qty: 1 on 02/19/2019 by Melly Gandhi MD at OR [facility] [id number] / [id number] Emb- [place] 18 Liquid Embolic. - [id number] N/A: Aorta COVIDIEN 11/18/[id number] / Implanted: Qty: 1 on 02/19/2019 by Melly Gandhi MD at OR [facility] [id number] / [id number] Emb- [place] 18 Liquid Embolic. - [id number] N/A: Aorta COVIDIEN 07/06/[id number] / Implanted: Qty: 1 on 02/19/2019 by Melly Gandhi MD at OR [facility] [id number] / [id number] Coil- [id number]-58-8-3 - [id number] Left: Aorta [employer] 07/02/2023 [id number] / Implanted: Qty: 10 on 02/19/2019 by Melly Gandhi MD at OR [facility] [id number] / [id number] Coil- Fvnac-75-7-2 - [id number] Left: Aorta [employer] 06/25/2023 [id number] / Implanted: Qty: 2 on 02/19/2019 by Melly Gandhi MD at OR [facility] [id number] / [id number] Emb- [place] 34 Liquid Embolic. - [id number] N/A: Aorta COVIDIEN 05/13/[id number] / Implanted: Qty: 1 on 02/19/2019 by Melly Gandhi MD at OR [facility] [id number] / [id number] Emb- [place] 34 Liquid Embolic. - [id number] N/A: Aorta COVIDIEN 08/11/2021 [id number] / Implanted: Qty: 1 on 02/19/2019 by Melly Gandhi MD at OR [facility] [id number] / [id number] documented as of this encounter Procedures Procedure Name Priority Date/Time Associated Comments Diagnosis CBC AND DIFFERENTIAL STAT 05/06/2019 1:35 Renal cell Results for this PM EST carcinoma of left procedure are in kidney the results section. TSH Routine 05/06/2019 1:35 Renal cell Results for this PM EST carcinoma of left procedure are in kidney the results section. COMPREHENSIVE STAT 05/06/2019 1:35 Renal cell Results for this METABOLIC PANEL PM EST carcinoma of left procedure are in kidney the results section. documented in this encounter Results CBC and differential (05/06/2019 1:35 PM EST) White Blood Cell 10.8 (H) 4 - 10 [facility] 10*3/uL [facility] Red Blood Cell 3.87 (L) 4.6 - 6.1 [facility] 10*6/uL [facility] Hemoglobin 12.4 (L) 13.5 - 18 [facility] g/dL [facility] Hematocrit 37.5 (L) 41 - 53 % [facility] Mean Cell Volume 96.7 (H) 80 - 96 fL [facility] Mean Cell Hemoglobin 32.1 27 - 33 pg [facility] Mean Cell Hgb Conc 33.2 32.0 - 36.0 [facility] g/dL [facility] Red Cell Dist Width 15.1 (H) 11.5 - 14.5 % [facility] Platelet Count 158Comment: 150 - 400 [facility] Confirmed 10*3/uL [facility] Differential Type Automated Diff [facility] Neutrophil 74 % [facility] Lymphocyte 15 % [facility] Monocyte 8 % [facility] Eosinophil 2 % [facility] Basophil 1 % [facility] Abs Neutrophil 8.05 (H) 1.8 - 7.0 [facility] 10*3/uL [facility] Abs Lymphocyte 1.58 1.2 - 4.0 [facility] 10*3/uL [facility] Abs Monocyte 0.88 (H) 0 - 0.8 [facility] 10*3/uL [facility] Abs Eosinophil 0.26 0 - 0.5 [facility] 10*3/uL [facility] Abs Basophil 0.06 0 - 0.2 [facility] 10*3/uL [facility] Clin Pathology Nucleated Red Blood 0 0 - 0 [facility] Cells /100{WBCs} [facility] Clin Pathology Specimen EDTA Whole Blood Performing Organization Address [facility] Phone [facility] [address] [place] [address] [facility] [address] [place] [address] Pathology TSH (05/06/2019 1:35 PM EST) TSH 0.962 0.270 - 4.200 u[IU]/mL [facility] Clin Pathology Specimen Plasma Performing Organization Address [facility] Phone Number [facility] [address] [place] [address] [phone] [facility] [address] [place] [address] Pathology Comprehensive metabolic panel (05/06/2019 1:35 PM EST) Albumin 4.1 3.5 - 5.2 [facility] g/dL [facility] Clin Pathology Bilirubin, Total 0.5 <1.2 mg/dL [facility] Pathology Calcium 8.9 8.8 - 10.2 [facility] mg/dL [facility] Pathology Chloride 104 98 - 107 [facility] mmol/L [facility] Pathology Creatinine 1.73 (H) 0.70 - 1.20 [facility] mg/dL [facility] Pathology Glucose 105 70 - 140 [facility] mg/dL [facility] Pathology Alkaline 78 40 - 129 U/L [facility] Phosphatase [facility] Potassium 5.7 (H) 3.4 - 5.1 [facility] mmol/L [facility] Pathology Total Protein 7.6 6.4 - 8.3 [facility] g/dL [facility] Pathology Sodium 135 (L) 136 - 145 [facility] mmol/L [facility] Pathology AST/SGO 13 <40 U/L [facility] Pathology Blood Urea Nitrogen 50 (H) 8 - 23 mg/dL [facility] Pathology Osmolality, Sukhi 293 275 - 300 [facility] mosm/kg [facility] BUN/Cre Ratio 29 [facility] Pathology Bicarbonate 19 (L) 22 - 29 [facility] mmol/L [facility] ALT/SGP 8 <41 U/L [facility] Pathology Anion Gap 12 8 - 15 mmol/L [facility] Pathology A/G Ratio 1.2 [facility] Pathology GFR Non eGFR is not >60 [facility] 2008 calculated in mL/min/1.73m2 [facility] CDK-EPI patients <18 or Pathology >80 years of age. GFR eGFR is not >60 [facility] 2008 calculated in mL/min/1.73m2 [facility] CKD-EPI patients <18 or Pathology >80 years of age. Specimen Plasma Performing Organization Address City/State/Zipcode Phone Number [facility] [address] [place] [address] [facility] [address] [place] [address] Pathology documented in this encounter Visit Diagnoses Diagnosis Left renal mass - Primary Unspecified disorder of kidney and ureter Other fatigue Renal cell carcinoma of left kidney Renal cell carcinoma, unspecified laterality documented in this encounter Administered Medications Medication Order MAR Action Action Date Dose Rate Site ecog-acrin [id number] nivolumab New Bag 05/06/2019 2:18 PM EST 480 mg 200 mL/ hr (OPDIVO) 480 mg in sodium chloride 0.9 % 100 mL (4.8 mg/mL) study drug chemo infusion 480 mg, Intravenous, Administer over 30 Minutes, Once, Sat05/06/19 at 1400, For 1 dose, Administer through a 0.22 micron pore size, low-protein binding (polyethersulfone membrane) in-line filter., documented in this encounter
--- OUTSIDE RECORDS SUMMARY | 2019-05-07 11:30 | XMS REPORT | Summary of Care ---
:1935 Author Organization [facility] Address [address] [place] [address] Care Team Providers Name Role Phone Silvio Roche MD Primary Care Provider Reason for Visit Reason Comments Follow-up path review Encounter Details Date Type Department Care Team Description 04/02/2019 Office Visit [facility] Urology Loretta, [facility] [address] [facility] [address] [facility] (Primary Dx) [place], [place] [address] [id number] [place] [phone] Allergies Active Allergy Reactions Severity Noted Date Comments Amoxicillin-Pot Clavulanate 01/31/2017 Cefuroxime Axetil 01/31/2017 Penicillins 01/31/2017 Clopidogrel Other (See Comments) 12/08/2018 hematuria Sulfa Antibiotics 01/31/2017 documented as of this encounter (statuses as of 04/02/2019) Medications Medication Sig Dispensed Refills Start Date [...] MG mouth every tablet morning tolterodine (DETROL Take 4 mg by 0 Active LA) 4 MG 24 hr capsule mouth Two Times Daily atorvastatin (LIPITOR) Take 40 mg by 0 Active 20 MG tablet mouth nightly vitamin B-12 Take 200 mcg by 0 Active (CYANOCOBALAMIN) 100 mouth every MCG tablet morning [place]-3 Fatty Acids Take 1,000 mg 0 Active (FISH OIL) 1000 MG by mouth Two CAPS Times Daily fluoxetine (PROZAC) 40 Take 40 mg by 0 Active MG capsule mouth every morning atenolol (TENORMIN) 25 Take 50 mg by 0 Active MG tablet mouth Two Times Daily Multiple Take 1 tablet 0 Active Vitamins-Minerals by mouth every (CENTRUM ADULTS PO) morning magnesium gluconate Take 500 mg by 0 Active (MAGONATE) 500 MG mouth every tablet morning OneTouch (DELICA) MISC Test Twice A 0 12/31/2014 Active fine lancets Day Or as Needed glucose blood check blood 0 12/31/2014 Active (Fooala [employer]) test sugar twice strip daily and as needed Blood Glucose use twice a day 0 12/31/2014 Active Monitoring Suppl and prn ([employer] IQ SYSTEM) w/Device KIT Oxygen GAS Used w/CPAP at 0 02/26/2014 Active night aspirin 81 MG tablet Take 81 mg by 0 Active mouth every morning Umeclidinium Happy Inhale 1 0 Active (INCRUSE ELLIPTA) 62.5 Inhaler into MCG/INH AEPB the lungs every morning Docusate Sodium 100 MG Take 1 capsule 60 capsule 0 03/24/2019 04/23/2019 Active Oral Capsule (COLACE) by mouth Two Times Daily Gabapentin 100 MG Oral Take 1 capsule 21 capsule 0 03/24/2019 Active Capsule (NEURONTIN) by mouth Three times daily for 7 days documented as of this encounter (statuses as of 04/02/2019) Active Problems Problem Noted Date Renal cell [...] as of this encounter (statuses as of 04/02/2019) Resolved Problems Problem Noted Date Resolved Date Aggression aggravated 03/23/2019 03/24/2019 Overview: Post op due to anesthesia Endoleak post endovascular aneurysm repair 02/11/2019 03/23/2019 Overview: Added automatically from request for surgery [id number] 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 [...] as of this encounter (statuses as of 04/02/2019) Social History Tobacco Use Types Packs/Day Years [...] Sign Reading Time Taken Comments Blood Pressure 131/80 04/02/2019 12:04 PM EST Pulse 60 04/02/2019 12:04 PM EST Temperature 36.6 04/02/2019 12:04 PM EST C (97.9 F) Respiratory Rate 18 04/02/2019 12:04 PM EST Oxygen Saturation 98% 04/02/2019 12:04 PM EST Inhaled Oxygen Concentration - - Weight 105.7 kg (233 lb) 04/02/2019 12:04 PM EST Height - - Body Mass Index 37.61 03/06/2019 10:15 AM EST documented in this encounter Progress Notes Slim Chavez PA - 04/02/2019 12:00 PM EST Chief Complaint Patient presents with Follow-up path review HPI: 83 y.o. 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 Pt is currently enrolled in the PROPSER RCC Trial at Oncology. Pt states that he feels great, he has very little pain managed with Tylenol. He is ambulating well , he is voiding well, tolerated a diet. He is not yet driving. Denies any CP, SOB, N/V, F/C. Pts was Dx with recurrent BCa and is undergoing treatment. PMH: Past Medical History: Diagnosis Date AAA [...] 02/11/2019 Added automatically from request for surgery [id number] Gastro-esophageal reflux disease without esophagitis H/O echocardiogram Hypercholesterolemia Hyperlipidemia Hypertension Low back pain Lumbago Lymphedema Mitral valve disorder 08/01/2011 Murmur, cardiac Nonrheumatic aortic (valve) stenosis Obesity Pneumonia Recurrent major depression in full remission 12/07/2009 Rhinitis, allergic 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 Sleep apnea Tinea pedis Tinea unguium PSH: Past Surgical History: Procedure Laterality Date CARDIAC VALVE REPLACEMENT Done in [place] CPAP Left knee repair [place] ENDOVASCULAR REPAIR ILIAC ARTERY W ILIO-ILIAC PROSTHESIS Left 2018 Procedure: ENDOVASCULAR REPAIR ILIAC ARTERY W ILIO-ILIAC PROSTHESIS [[id number]]; ilac limb extension and possible embolization; Surgeon: Melly Gandhi MD; Location: [facility]; Service: Vascular; Laterality: Left; Prostate Operation RADIESSE INJECTION PHARYNGOPLASTY Right ear surgery for skin cancer TONSILLECTOMY FH: Family History Problem Relation Age of Onset Arthritis Mother Hypertension Mother Arthritis Father Diabetes Maternal Grandmother Diabetes Paternal Grandmother Social: Social History Tobacco Use Smoking status: Former Smoker Packs/day: 1.00 Years: 25.00 Pack years: 25.00 Types: Cigarettes Last attempt to quit: 02/19/1998 Years since quittin.1 Smokeless tobacco: Never Used Substance Use Topics Alcohol use: No Drug use: No Meds: Prior to Admission medications Medication Sig Start Date End Date Taking? Authorizing Provider albuterol (PROAIR HFA) 108 (90 Base) MCG/ACT inhaler Inhale 2 puffs into the lungs every 4 (four) hours as needed Yes Historical Provider, aspirin 81 MG tablet Take 81 mg by mouth every morning Yes Historical Provider, atenolol (TENORMIN) 25 MG tablet Take 50 mg by mouth Two Times Daily Yes Historical Provider, atorvastatin (LIPITOR) 20 MG tablet Take 40 mg by mouth nightly Yes Historical Provider, Blood Glucose Monitoring Suppl (Fooala VERIO IQ SYSTEM) w/Device KIT use twice a day and prn 12/31/14 Yes Historical Provider, dilTIAZem (CARTIA XT) 120 MG 24 hr capsule Take 120 mg by mouth every morning Yes Historical Provider, Docusate Sodium 100 MG Oral Capsule (COLACE) Take 1 capsule by mouth Two Times Daily 03/24/19 04/23/19 Yes Rubi Deras NP fluoxetine (PROZAC) 40 MG capsule Take 40 mg by mouth every morning Yes Historical Provider, glucose blood (SnaptripUCH VERIO) test strip check blood sugar twice daily and as needed 12/31/14 Yes Historical Provider, lisinopril (PRINIVIL,ZESTRIL) 2.5 MG tablet Take 2.5 mg by mouth every morning Yes Historical Provider, magnesium gluconate (MAGONATE) 500 MG tablet Take 500 mg by mouth every morning Yes Historical Provider, Multiple Vitamins-Minerals (CENTRUM ADULTS PO) Take 1 tablet by mouth every morning Yes Historical Provider, [place]-3 Fatty Acids (FISH OIL) 1000 MG CAPS Take 1,000 mg by mouth Two Times Daily Yes HistoricalProviderMD Harkinsuch (DELICA) MISC fine lancets Test Twice A Day Or as Needed 12/31/14 Yes Historical Provider, Oxygen GAS Used w/CPAP at night 02/26/14 Yes Historical Provider, spironolactone (ALDACTONE) 25 MG tablet Take 25 mg by mouth every morning Yes Historical Provider, tolterodine (DETROL LA) 4 MG 24 hr capsule Take 4 mg by mouth Two Times Daily Yes Historical Provider, Umeclidinium Happy (INCRUSE ELLIPTA) 62.5 MCG/INH AEPB Inhale 1 Inhaler into the lungs every morning Yes Historical Provider, vitamin B-12 (CYANOCOBALAMIN) 100 MCG tablet Take 200 mcg by mouth every morning Yes Historical Provider, Gabapentin 100 MG Oral Capsule (NEURONTIN) Take 1 capsule by mouth Three times daily for 7 days 03/24/19 03/31/19 Rubi Deras NP Allergies: Allergies Allergen Reactions Augmentin [Amoxicillin-Pot Clavulanate] Ceftin [Cefuroxime Axetil] Penicillins Plavix [Clopidogrel] Other (See Comments) hematuria Sulfa Antibiotics ROS: Head: denies trauma HEMPHILL, N/V Eye: no acute change in vision Ears: no hearing Mouth/throat: no sore throat, no difficulty swallowing Pul: denies SOB, Coughing, sputum production, CV: denies CP, palpitations, no Hx of CAD, A-fib Abd: no abd pain, diarrhea, constipation, Ext: denies tingling, or swelling Neuro: Denies dizziness, vertigo, loss of sensation or motor reflexes PE: Vitals: Vitals: 04/02/19 1204 BP: 131/80 Pulse: 60 Resp: 18 Temp: 36.6 C SpO2: 98% Weight: 105.7 kg (233 lb) NAD NC/AT Pupils equal Breathing comfortably Neck is supple ABD: Soft, non-distended incision and port sites clean and dry. Back: No CVA T b/l Skin: Warn, Dry Extr: No Edema Neuro: Intact A&O X3 A/P: 83 y.o. 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 Pt is currently enrolled in the PROPSER RCC Trialat Oncology. - PT is doing very well post op. His pain is well controlled, cleared to drive if he is not taking narcotics. - Enrolled in the PROPSER Trial all imaging and follow up labs will be according to the trial. - We will have him return in 3 months for a Surgical Follow up RTC in 3 months Slim Chavez PA-C Discussed history and physical examination, all pertinent labs or imaging, assessment and plan with Dr. Burgos who also saw the patient and agreed with the above. documented in this encounter Plan of Treatment Date Type Specialty Care Team Description 04/24/2019 Office Visit Hematology and Oncology Mariajose Hunter MD [address], [place] [id number] 06/05/2019 Office Visit Vascular Surgery Melly Gandhi MD [address] [address] [phone] 12/04/2019 Office Visit Vascular Surgery Melly Gandhi MD [address] [address] [phone] Health Maintenance Due Date Last Done Comments [...] of this encounter Implants Implanted Type Area Cutter Grinder Operator Device Shelf Model / Identifier Expiration Serial / Date Lot Vas Lori - Proglide Perclose - [id number] Left: GUIDANT KYARA 10/15/2018 [id number] / Implanted: Qty: 2 on 02/22/2017 by Melly Gandhi MD at OR [facility] Arterial / [id number] Vas Lori - Proglide Perclose - [id number] Right: Groin GUIDANT KYARA 2018 [id number] / Implanted: Qty: 2 on 02/22/2017 by Melly Gandhi MD at OR [facility] / [id number] Contralat Limb [id number] - [id number] Left: [employer] 2018 [id number] / Implanted: Qty: 1 on 02/22/2017 by Melly Gandhi MD at OR [facility] Arterial [id number] / Description:Left limb stent graft Contralat Limb [id number] - [id number] Right: Arterial [employer] 01/16/2019 [id number] / Implanted: Qty: 1 on 02/22/2017 by Melly Gandhi MD at OR [facility] [id number] / Vas Lori - Proglide Perclose - [id number] Right: Groin GUIDANT KYARA 2018 [id number] / Implanted: Qty: 2 on 02/22/2017 by Melly Gandhi MD at OR [facility] / [id number] Patch Vasc Xenosure [id number] - [id number] Right: Groin LEMAITRE 2022 [id number] / Implanted: Qty: 1 on 02/22/2017 by Melly Gandhi MD at OR [facility] VASCULAR / [id number] Graft Stent Bif [id number] - [id number] N/A: Aorta [employer] 10/24/2018 [id number] / Implanted: Qty: 1 on 02/22/2017 by Melly Gandhi MD at OR [facility] [id number] / Emb- [place] 34 Liquid Embolic. - [id number] N/A: Aorta COVIDIEN EV3 02/29/ 2020 [id number] / Implanted: Qty: 1 on 02/19/2019 by Melly Gandhi MD at OR [facility] [id number] / [id number] Emb- [place] 34 Liquid Embolic. - [id number] N/A: Aorta COVIDIEN EV3 2021 [id number] / Implanted: Qty: 1 on 02/19/2019 by Melly Gandhi MD at OR [facility] [id number] / [id number] Emb- [place] 34 Liquid Embolic. - [id number] N/A: Aorta COVIDIEN EV3 2020 [id number] / Implanted: Qty: 1 on 02/19/2019 by Melly Gandhi MD at OR [facility] [id number] / [id number] Emb- [place] 18 Liquid Embolic. - [id number] N/A: Aorta COVIDIEN EV3 2021 [id number] / Implanted: Qty: 1 on 02/19/2019 by Melly Gandhi MD at OR [facility] [id number] / [id number] Emb- [place] 18 Liquid Embolic. - [id number] N/A: Aorta COVIDIEN EV3 2020 [id number] / Implanted: Qty: 1 on 02/19/2019 by Melly Gandhi MD at OR [facility] [id number] / [id number] Emb- [place] 18 Liquid Embolic. - [id number] N/A: Aorta COVIDIEN EV3 2021 [id number] / Implanted: Qty: 1 on 02/19/2019 by Melly Gandhi MD at OR [facility] [id number] / [id number] Coil- Kwwut-03-9-3 - [id number] Left: Aorta [employer] 07/02/2023 [id number] / Implanted: Qty: 10 on 02/19/2019 by Melly Gandhi MD at OR [facility] [id number] / [id number] Coil- [id number]-00-3-2 - [id number] Left: Aorta [employer] 06/25/2023 [id number] / Implanted: Qty: 2 on 02/19/2019 by Melly Gandhi MD at OR [facility] [id number] / [id number] Emb- [place] 34 Liquid Embolic. - [id number] N/A: Aorta COVIDIEN EV3 2020 [id number] / Implanted: Qty: 1 on 02/19/2019 by Melly Gandhi MD at OR [facility] [id number] / [id number] Emb- [place] 34 Liquid Embolic. - [id number] N/A: Aorta COVIDIEN EV3 2021 [id number] / Implanted: Qty: 1 on 02/19/2019 by Melly Gandhi MD at OR [facility] [id number] / [id number] documented as of this encounter Results Not on filedocumented in this encounter Visit Diagnoses Diagnosis Renal cell carcinoma of left kidney - Primary documented in this encounter
--- OUTSIDE RECORDS SUMMARY | 2019-05-07 11:31 | XMS REPORT | Summary of Care ---
:1935 Author Organization [facility] Address [address] [place] [address] Care Team Providers Name Role Phone Silvio Roche MD Primary Care Provider Reason for Visit Auth/Cert Status Reason Specialty Diagnoses / Procedures Referred By Contact Referred To Contact Diagnoses left renal mass Davi Burgos MD [address] [facility] [place] [address] Email: [email or web address] Encounter Details Date Type Department Care Team Description 03/23/2019 - Hospital Encounter 05B Loretta, 03/24/2019 SURGERY/TRANSPLANT MD Davi [address] [facility] [address] [place], [place] [address] [address] [place] [address] Allergies Active Allergy Reactions Severity Noted Date Comments Amoxicillin-Pot Clavulanate 01/31/2017 Cefuroxime Axetil 01/31/2017 Penicillins 01/31/2017 Clopidogrel Other (See Comments) 12/08/2018 hematuria Sulfa Antibiotics 01/31/2017 documented as of this encounter (statuses as of 03/24/2019) Medications Medication Sig Dispensed Refills Start Date [...] (CYANOCOBALAMIN) 100 mouth every MCG tablet morning Mesick-3 Fatty Acids Take 1,000 mg 0 Active [...] 500 MG mouth every tablet morning OneTouch (Uncovet) MISC Test Twice A 0 12/31/2014 Active fine lancets Day Or as Needed glucose blood check blood 0 12/31/2014 Active ([employer] VERIO) test sugar twice strip daily and as needed Blood Glucose use twice a day 0 12/31/2014 Active Monitoring Suppl and prn (IntroMaps IQ SYSTEM) w/Device KIT Oxygen GAS Used w/CPAP at 0 02/26/2014 Active night aspirin 81 MG tablet Take 81 mg by 0 Active mouth every morning Umeclidinium Palmer Inhale 1 0 Active (INCRUSE ELLIPTA) 62.5 Inhaler into MCG/INH AEPB the lungs every morning Docusate Sodium 100 MG Take 1 capsule 60 capsule 0 03/24/2019 04/23/2019 Active Oral Capsule (COLACE) by mouth Two Times Daily Gabapentin 100 MG Oral Take 1 capsule 21 capsule 0 03/24/2019 03/31/2019 Active Capsule (NEURONTIN) by mouth Three times daily for 7 days traMADol HCl 50 MG Take 1 tablet 12 tablet 0 03/24/2019 03/27/2019 Active Oral Tablet (ULTRAM) by mouth every 6 (six) hours as needed for up to 3 days, Max Daily Dose: 200 mg documented as of this encounter (statuses as of 03/24/2019) Active Problems Problem Noted Date Renal cell [...] as of this encounter (statuses as of 03/24/2019) Resolved Problems Problem Noted Date Resolved Date Aggression aggravated 03/23/2019 03/24/2019 Overview: Post op due to anesthesia Endoleak post endovascular aneurysm repair 02/11/2019 03/23/2019 Overview: Added automatically from request for surgery [id number] 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 [...] as of this encounter (statuses as of 03/24/2019) Social History Tobacco Use Types Packs/Day Years [...] Sign Reading Time Taken Comments Blood Pressure 115/63 03/24/2019 3:32 PM EST Pulse 59 03/24/2019 3:32 PM EST Temperature 36.4 03/24/2019 3:32 PM EST C (97.5 F) Respiratory Rate 18 03/24/2019 3:32 PM EST Oxygen Saturation 95% 03/24/2019 3:32 PM EST Inhaled Oxygen Concentration - - Weight - - Height - - Body Mass Index - - documented in this encounter Discharge Instructions Discharge Instr - Other Rubi Umaña NP - 03/23/2019 12:15 PM EST Call us with any questions or concerns at [phone] [facility] Urology at [address] [place] [address] Specialty Services at [facility] [address] [facility], [place] [address] Activity: ? Your activity is limited to lifting less than 10 pounds for 4-6 weeks. ? No mowing the lawn, no riding mowers, no motorcycles, no ATV's ? You should walk inside or outside of your home and do small tasks. ? Be active and do as much of your normal routine as you can. Go up and down stairs, walk as much aspossible, go out as you like. ? Avoid sitting with your legs down for long periods of time. ? Keeping active will help prevent blood clots from forming in the veins of your legs. ? You should not drive while taking pain medicines and cleared by Dr Burgos. ? You can ride in a car and should wear a seatbelt. ? Use your incentive spirometer (breathing toy) at least 5 times a day until your follow-up appointment. Incision Care: ? Shower when you get home. Daily showering will help to prevent infection. ? Do not use highly perfumed or scented soap, lotion, creams, or ointments on your incisions. ? Pat dry after washing with mild soap and water. Do not rub your incisions. ? Clear drainage from your incisions is ok, if you see pus and, or you develop a fever call your doctor at [phone]. ? If you have steri strips small pieces of tape over the incision, remove them 7 to10 days after your surgery. ? If you do not have steri-strips over your incisions, you may have clear skin glue (Dermabond). ? Dermabond will flake off as your skin grows. This may take 3 to 5 weeks after surgery. Nutrition: ? Be sure to eat well to promote healing. Clear Liquid Diet Clear liquids are any liquid that you can see through as well as those that are very easy to digest.This is used while the body is recovering from irritation or infection of the stomach or intestinal tract. It may also be used before special procedures or surgery. You may include the following items. Adults Adults should drink a total of 23 quarts of liquid per day. It may be easier to drink small frequent servings rather than a few large ones. Liquids can include: Fruit juices. Apple, grape and cranberry juice, clear fruit drinks, sports drinks Beverages. Sport drinks, tea, black coffee, liquid gelatin (add twice the recommended amount ofwater) Soups. Clear broth, consomm, bouillon Desserts. Plain gelatin, popsicles, fruit juice bars Once you are tolerating clear liquids without nausea, bloating, or burping advance to full liquids. Full Liquid Diet A full liquid diet is a middle step between a clear liquid diet and eating solid foods. A clear liquid diet allows only liquid you can see through. A full liquid diet allows thicker, liquid foods as listed below. The full liquid diet may be used before or after surgery or before some medical tests. Itis easy to digest and leaves little food in the stomach and intestines. A full liquid diet meets calorie and protein needs for your body with liquids only. You may include the following items on a full liquid diet: Adults Adults should drink a total of 2 to 3 quarts of liquid per day. It may be easier to drink small frequent servings rather than a few large ones. Note: Patients with severe kidney or heart disease can drink only limited amounts of fluids. Check with your doctor. Beverages: Coffee, tea, cream, milk, milkshakes, fruit and vegetable juices , sodas, mineral water (plain or flavored), liquid gelatin, electrolyte replacement sport drinks Cereals and soups: Cream of Wheat, Cream of Rice, [place] Wheats, pureed soups (including pureed meats, bland vegetables and white potatoes), tomato puree Desserts: Gelatin (Jell-O), whipped topping, custard-style yogurt, pudding , custard, plain ice cream, sherbet, sorbet, popsicles, fruit juice bars Miscellaneous: Salt, mild-flavored seasonings, chocolate flavoring, gravy, margarine, sugar, syrup, jelly, honey, hard candy (to suck on) Once you are tolerating full liquids without nausea, bloating, or burping and you are also passing gas you may advance to a low fat diet. Low Fat Diet Beverages Ok: Nonfat milk, coffee, tea Avoid: Whole and low-fat milk, evaporated milk and condensed milk; hot chocolate mixes, milk shakes,malts, eggnog Bread Ok: White, whole wheat or rye bread, julius or soda crackers, [place] toast, plain rolls, bagels Avoid: Waffles, pancakes, biscuits, corn bread; cheese crackers, other flavored crackers, pastries, doughnuts; wheat germ Cereal Ok: Oatmeal, whole wheat, bran, multi grain, rice Avoid: Granola or others containing oil or coconut or more than 2 Grams of fat per serving Desserts Ok: Gelatin, water ices, zarina food cake, puddings or sherbet made with non-fat milk, meringues and non-fat yogurt Avoid: Any other commercially prepared desserts or desserts containing fat, whole milk, cream, chocolate and coconut Fats Ok: You may have up to 3 teaspoons of fat daily. This can be in the form of butter, margarine, mayonnaise or vegetable oil Avoid: Cream, non-dairy creams, gravies and cream sauces Fruits Ok: All fruits prepared without fat Avoid: Avocado, coconut, olives Meats Ok: Limit meat to 6 oz daily (broiled, roasted, baked or boiled). Select only lean cuts, well trimmed of fat: beef, fish, rasmussen, pork and canned fish packed in water. Chicken and turkey with the skin removed Avoid: Fried meats, fish, poultry, fried eggs and fish canned in oils; fatty meats such as escalera, corned beef, hot dogs, luncheon meats, or meats with gravies and sauces Cheese & Eggs Ok: Cheeses labeled "Low Fat"; 3 whole eggs per week, egg whites (Eggbeaters) as desired Avoid: All other cheeses Potatoes, Beans, Pasta Ok: Dried beans, split peas, lentils, potatoes, rice, macaroni, noodles, spaghetti prepared without added fat Avoid: Fried potatoes, potato chips, potatoes prepared with butter, cream cheese Soups Ok: Bouillon or broth soups without fat and with allowed vegetables Avoid: All other soups Vegetables Ok: Fresh, frozen, canned or dried vegetables all prepared without added fat Avoid: Fried vegetables and those prepared with butter, cream, sauces Miscellaneous Ok: Salt, sugar, jelly, hard candy, marshmallows, honey, syrup, spices and herbs , mustard, catsup, lemon, vinegar Avoid: Chocolate, nuts, coconut, cream candies, olives, sunflower or sesame and other seeds, all fried foods, and all cream sauces and gravies No pizza, chicken wings, hamburgers/cheeseburgers, hot dogs, or other fatty foods. Medicines: ? You will receive a list of the medicines that you should take at home. ? You may be sent home with different medicines or dosages than you were taking before surgery. ? Your surgeon will review your medicines at your first postoperative clinic visit ? Bring your pill bottles or the list of your medicines with you to your first clinic appointment with your surgeon after surgery. ? Pain medicines are usually sent home with you and should be the same medicines you were taking during the later part of your hospital stay. ? Try using Tylenol before using the narcotic pain medicines. ? If you need to take the Lortab know that there is Tyleonol in it (325mg) ? Do not exceed 3000 mg of tylenol or acetaminophen in 24 hours from all sources ? If you have a lot of pain after surgery, take your medicine. Do not wait because it will be harderfor the medicine to control the pain. ? If your pain is decreasing and you do not need the same dose of pain medicine decrease the amountof medicine you are taking. You can take 1 pill at a time instead of 2, or increase the amount of time between doses of pain medicine. ? Do not drive, drink alcohol, or operate heavy machinery while taking narcotic pain medicines. ? Narcotic pain medicines can cause constipation. You should have a bowel movement within 3 days after your operation. ? We suggest the following steps to prevent constipation: ? Drink plenty of liquids. ? Use Colace [id number] two times a day. ? You may add Miralax daily ? You may also add Metamucil two times a day. ? Use Senna at bedtime as a laxative. ? Eat prunes or drink prune juice daily. Call for: ? Temperature of 100.4 or greater. ? Pus draining from your incisions. ? Shortness of breath. ? Call if you are having pain that is not controlled with your pain medications. Please bring a list of questions at the time of your visit. BE SURE TO DOUBLE VOID WHEN YOU GO HOME TO ENSURE THAT YOU ARE FULLY EMPTYING ( empty your bladder, walk then empty again). Speak Up If You Have Any Questions or Concerns documented in this encounter Progress Notes Josefina Soto RN - 03/24/2019 3:40 PM ESTPatient discharged to home. AVS reviewed with patient and daughter. Patient and daughter states they understand all discharge instructions and has no further questions. IVs removed. Vitals stable.PAtient awaiting wheelchair downstairs. Mark Bartholomew - 03/24/2019 1:00 PM EST Spiritual Care Progress Note Raise Driller: Loida Macedo Patient Name: Baljinder Cardenas Age: 83 y.o. Sex: male Room/Bed: 55614/2 Cherry Affiliation/Tradition: Congregation Admit Date: 03/23/2019 Referrals: Referral From: Rounding On Unit Referral To: Loida Mcnair Contact Information: [phone] Spiritual Care Assessment Spouse/Significant Other Name/Relationship: None present. Assessed Need for Visit: Spiritual Companionship Patient Description: Hope-filled Spiritual/Cultural/Social Issues Assessment: The patient visit took place due to rounding on the 5Bunit. Baljinder was happy to visit, and talked about how he puts a lot of cherry in his family and trusts that they will take care of him. He accepted a "Words of Hope" brochure and an explanation of the different ministries that are available here for him and his family. Spiritual Care Intervention: Supportive Listening, Affirmation Spiritual Outcomes - Patient: [place] comforted, accompanied Spiritual Outcomes - Family: Not available for assessment Spiritual Care Plan Goal Goal: To assess spiritual care needs and hopes and mobilize spiritual resources for patients/families/caregivers that support/enhance quality of life related to hospitalization. Outcome: unchanged Spiritual Care Follow Up Follow Up: Routine visit Josefina Min RN - 03/24/2019 12:15 PM ESTPatient only able to void about 25cc around 1145. Patient did try to double void. Bladder scan [id number]. Andrea Deras SCREENING TECH made aware. Per SCREENING TECH encourage patient to drink fluid. Patient aware. documented in this encounter Plan of Treatment Date Type Specialty Care Team Description 04/02/2019 Office Visit Urology Davi Burgos MD [address] [place] [phone] 04/24/2019 Office Visit Hematology and Oncology Mariajose Hunter MD [address] [place] [address] [phone] 06/05/2019 Office Visit Vascular Surgery Melly Gandhi MD [address] [address] [phone] 12/04/2019 Office Visit Vascular Surgery Melly Gandhi MD [address] [address] [phone] Name Type Priority Associated Diagnoses Date/Time Surgical Pathology Pathology and Routine 03/24/2019 6:00 Exam ( Only) Cytology AM EST Name Type Priority Associated Order Schedule Diagnoses Type and Crossmatch Blood Bank Routine Once for 1 Occurrences starting 03/23/2019 until 03/23/2019 Prepare RBC 2 Units Blood Bank Routine Once for 1 Occurrences starting 03/23/2019 until 03/23/2019 Surgical Pathology Pathology and Routine Once for 1 Exam ( Only) Cytology Occurrences starting 03/23/2019 until 03/23/2019 POCT glucose, Point of Care Routine Every 4 Hours for 30 docked Testing-Docked Days starting Device 03/23/2019 until 04/22/2019, 5 completed Patient May Use own Respiratory Care Routine Until Discontinued Bipap / Cpap for 30 Days starting Machine with Home 03/23/2019 until Settings 03/23/2019 Oxygen Orders: Respiratory Care Routine Continuous for 30 Nasal Cannula; days for 30 Days Liters per minute: starting 03/23/2019 2 LPM; D/C Oxygen until 04/22/2019 48hrs After Being on Room Air: Yes; Wean/Titrate O2 to Keep Sats =>: 92 Surgical Pathology Pathology and Routine Once for 1 Exam ( Only) Cytology Occurrences starting 03/23/2019 until 03/23/2019 Health Maintenance Due Date Last Done Comments [...] of this encounter Implants Implanted Type Area Video News Editor Device Shelf Model / Identifier Expiration Serial / Date Lot Vas Lori - Proglide Perclose - [id number] Left: GUIDANT KYARA 10/15/2018 [id number] / Implanted: Qty: 2 on 02/22/2017 by Melly Gandhi MD at OR [facility] Arterial / [id number] Vas Lori - Proglide Perclose - [id number] Right: Groin GUIDANT KYARA 2018 [id number] / Implanted: Qty: 2 on 02/22/2017 by Melly Gandhi MD at OR [facility] / [id number] Contralat Limb [id number] - [id number] Left: [employer] 2018 [id number] / Implanted: Qty: 1 on 02/22/2017 by Melly Gandhi MD at OR [facility] Arterial [id number] / Description:Left limb stent graft Contralat Limb [id number] - [id number] Right: [employer] 01/16 [id number] / Implanted: Qty: 1 on 02/22/2017 by Melly Gandhi MD at OR [facility] Arterial [id number] / Vas Lori - Proglide Perclose - [id number] Right: Groin GUIDANT KYARA 2018 [id number] / Implanted: Qty: 2 on 02/22/2017 by Melly Gandhi MD at OR [facility] / [id number] Patch Vasc Xenosure [id number] - [id number] Right: Groin LEMAITRE 2022 [id number] / Implanted: Qty: 1 on 02/22/2017 by Melly Gandhi MD at OR [facility] VASCULAR / [id number] Graft Stent Bif [id number] - [id number] N/A: Aorta [employer] 10/24/2018 [id number] / Implanted: Qty: 1 on 02/22/2017 by Melly Gandhi MD at OR [facility] [id number] / Emb- [place] 34 Liquid Embolic. - [id number] N/A: Aorta COVIDIEN 05/16/2019 [id number] / Implanted: Qty: 1 on 02/19/2019 by Melly Gandhi MD at OR [facility] [id number] / [id number] Emb- [place] 34 Liquid Embolic. - [id number] N/A: Aorta COVIDIEN 08/11/2021 [id number] / Implanted: Qty: 1 on 02/19/2019 by Melyl Gandhi MD at OR [facility] [id number] / [id number] Emb- [place] 34 Liquid Embolic. - [id number] N/A: Aorta COVIDIEN 02/27/2021 [id number] / Implanted: Qty: 1 on 02/19/2019 by Melly Gandhi MD at OR [facility] [id number] / [id number] Emb- [place] 18 Liquid Embolic. - [id number] N/A: Aorta COVIDIEN 07/01/2021 [id number] / Implanted: Qty: 1 on 02/19/2019 by Melly Gandhi MD at OR [facility] [id number] / [id number] Emb- [place] 18 Liquid Embolic. - [id number] N/A: Aorta COVIDIEN 11/18/2020 [id number] / Implanted: Qty: 1 on 02/19/2019 by Melly Gandhi MD at OR [facility] [id number] / [id number] Emb- [place] 18 Liquid Embolic. - [id number] N/A: Aorta COVIDIEN 07/06/2021 [id number] / Implanted: Qty: 1 on 02/19/2019 by Melly Gandhi MD at OR [facility] [id number] / [id number] Coil- [id number] - [id number] Left: Aorta [employer] 07/02/2023 [id number] / Implanted: Qty: 10 on 02/19/2019 by Melly Gandhi MD at OR [facility] [id number] / [id number] Coil- [id number] - [id number] Left: Aorta [employer] 06/25/2023 [id number] / Implanted: Qty: 2 on 02/19/2019 by Melly Gandhi MD at OR [facility] [id number] / [id number] Emb- [place] 34 Liquid Embolic. - [id number] N/A: Aorta COVIDIEN 05/13/2020 [id number] / Implanted: Qty: 1 on 02/19/2019 by Melly Gandhi MD at OR [facility] [id number] / [id number] Emb- [place] 34 Liquid Embolic. - [id number] N/A: Aorta COVIDIEN 08/11/2021 [id number] / Implanted: Qty: 1 on 02/19/2019 by Melly Gandhi MD at OR [facility] [id number] / [id number] documented as of this encounter Procedures Procedure Name Priority Date/Time Associated Comments Diagnosis POCT GLUCOSE, DOCKED Routine 03/24/2019 12:27 Results for this PM EST procedure are in the results section. POCT GLUCOSE, DOCKED Routine 03/24/2019 8:24 Results for this AM EST procedure are in the results section. CBC Routine 03/24/2019 4:02 Results for this AM EST procedure are in the results section. PHOSPHORUS LEVEL Routine 03/24/2019 4:02 Results for this AM EST procedure are in the results section. MAGNESIUM LEVEL Routine 03/24/2019 4:02 Results for this AM EST procedure are in the results section. BASIC METABOLIC PANEL Routine 03/24/2019 4:02 Results for this AM EST procedure are in the results section. POCT GLUCOSE, DOCKED Routine 03/24/2019 3:47 Results for this AM EST procedure are in the results section. POCT GLUCOSE, DOCKED Routine 03/24/2019 1:08 Results for this AM EST procedure are in the results section. POCT GLUCOSE, DOCKED Routine 03/23/2019 7:15 Results for this PM EST procedure are in the results section. POCT GLUCOSE, DOCKED Routine 03/23/2019 5:06 Results for this PM EST procedure are in the results section. CBC STAT 03/23/2019 5:00 Results for this PM EST procedure are in the results section. BASIC METABOLIC PANEL STAT 03/23/2019 5:00 Results for this PM EST procedure are in the results section. PARTIAL THROMBOPLASTIN Routine 03/23/2019 3:50 Results for this TIME (PTT) PM EST procedure are in the results section. PROTIME INR Routine 03/23/2019 3:50 Results for this PM EST procedure are in the results section. CBC AND DIFFERENTIAL Routine 03/23/2019 3:50 Results for this PM EST procedure are in the results section. TSH Routine 03/23/2019 3:50 Results for this PM EST procedure are in the results section. T4, FREE Routine 03/23/2019 3:50 Results for this PM EST procedure are in the results section. BASIC METABOLIC PANEL Routine 03/23/2019 3:50 Results for this PM EST procedure are in the results section. POCT ISTAT ARTERIAL CG8 Routine 03/23/2019 2:56 Results for this PM EST procedure are in the results section. CROSSMATCH, PAT Routine 03/23/2019 1:30 Results for this PM EST procedure are in the results section. ROBOTIC NEPHRECTOMY 03/23/2019 1:09 Left renal mass PM EST Case Notes 03/12 added Aloka to case per Josselin/reyes CATHY VIDEO Routine 03/23/2019 12:54 PM EST POCT GLUCOSE, DOCKED Routine 03/23/2019 11:37 AM EST CARDIAC REPORT 02/27/2019 12:08 PM EST CARDIAC REPORT 02/27/2019 12:06 PM EST documented in this encounter Results POCT glucose, docked (03/24/2019 12:27 PM EST) POC Glucose 124 70 - 140 mg/dL [facility] POC Specimen Whole Blood Performing Organization Address [facility] Phone Number POINT OF CARE TEST [address] [place], [place] [id number] [place] [address] POC [address] [place] [address] POCT glucose, docked (03/24/2019 8:24 AM EST) POC Glucose 121 70 - 140 mg/dL [facility] POC Specimen Whole Blood Performing Organization Address [facility] Phone Number POINT OF CARE TEST [address] [place] [address] [facility] POC [address] [place] [address] Phosphorus Level (03/24/2019 4:02 AM EST) Phosphorus 4.3 2.5 - 4.5 mg/dL [facility] Pathology Specimen Plasma Performing Organization Address City/[facility] Phone Number [facility] CLINICAL PATHOLOGY [address] [place] [address] [facility] [address] [place] [address] Pathology Magnesium Level (03/24/2019 4:02 AM EST) Magnesium 1.7 1.6 - 2.4 mg/dL [facility] Pathology Specimen Plasma Performing Organization Address City/[facility]/Zipcode Phone Number [facility] PATHOLOGY [address] [place] [address] [phone] [facility] [address] [place] [address] Pathology Basic Metabolic Panel (03/24/2019 4:02 AM EST) Bicarbonate 22 22 - 29 [facility] mmol/L [facility] Pathology Chloride 100 98 - 107 [facility] mmol/L [facility] Pathology Creatinine 1.50 (H) 0.70 - 1.20 [facility] mg/dL [facility] Pathology Glucose 135 70 - 140 [facility] mg/dL [facility] Pathology Potassium 4.9 3.4 - 5.1 [facility] mmol/L [facility]ology Sodium 137 136 - 145 [facility] mmol/L [facility] Pathology Blood Urea Nitrogen 27 (H) 8 - 23 mg/dL [facility] Pathology Anion Gap 15 8 - 15 mmol/L [facility] Pathology Osmolality, Sukhi 291 275 - 300 [facility] mosm/kg [facility] Pathology BUN/Cre Ratio 18 [facility] Pathology Calcium 8.4 (L) 8.8 - 10.2 [facility] mg/dL [facility] Pathology GFR Non eGFR is not >60 [facility] 2008 calculated in mL/min/1.73m2 [facility] CDK-EPI patients <18 or Pathology >80 years of age. GFR eGFR is not >60 [facility] 2008 calculated in mL/min/1.73m2 [facility] CKD-EPI patients <18 or Pathology >80 years of age. Specimen Plasma Performing Organization Address City/[facility]/Zipcode Phone Number [facility] CLINICAL PATHOLOGY [address] [place] [address] [facility] [address] [place] [address] Pathology CBC (03/24/2019 4:02 AM EST) White Blood Cell 8.6 4 - 10 10*3/uL [facility] Clin Pathology Red Blood Cell 3.82 (L) 4.6 - 6.1 [facility] 10*6/uL [facility] Clin Pathology Hemoglobin 12.1 (L) 13.5 - 18 g/dL [facility] Pathology Hematocrit 37.1 (L) 41 - 53 % [facility] Pathology Mean Cell Volume 97.1 (H) 80 - 96 fL [facility] Pathology Mean Cell Hemoglobin 31.6 27 - 33 pg [facility] Pathology Mean Cell Hgb Conc 32.6 32.0 - 36.0 [facility] g/dL [facility] Pathology Red Cell Dist Width 14.9 (H) 11.5 - 14.5 % [facility] Pathology Platelet Count 163 150 - 400 [facility] 10*3/uL [facility] Pathology Specimen EDTA Whole Blood Performing Organization Address [facility] Phone Number [facility] CLINICAL PATHOLOGY [address] [place] [address] [phone] [facility] [address] [place] [address] Pathology POCT glucose, docked (03/24/2019 3:47 AM EST) POC Glucose 137 70 - 140 mg/dL [facility] POC Specimen Whole Blood Performing Organization Address [facility] Phone Number POINT OF CARE TEST [address] [place], [place] [id number] [place] [address] POC [address] [place] [address] POCT glucose, docked (03/24/2019 1:08 AM EST) POC Glucose 124 70 - 140 mg/dL [facility] POC Specimen Whole Blood Performing Organization Address [facility] Phone Number POINT OF CARE TEST [address] [place] [address] [facility] POC [address] [place] [address] POCT glucose, docked (03/23/2019 7:15 PM EST) POC Glucose 138 70 - 140 mg/dL [facility] POC Specimen Whole Blood Performing Organization Address [facility] Phone Number POINT OF CARE TEST [address] [place], [place] [id number] [place] [address] POC [address] [place] [address] POCT glucose, docked (03/23/2019 5:06 PM EST) Pathologist [facility] POC Glucose 122 70 - 140 mg/dL [facility] POC Specimen Whole Blood Performing Organization Address City/[facility]/Zipcode Phone Number POINT OF CARE TEST [address] [place] [address] [facility] POC [address] [place] [address] Basic Metabolic Panel (03/23/2019 5:00 PM EST) [facility] Bicarbonate 16 (L) 22 - 29 [facility] mmol/L [facility] Clin Pathology Chloride 102 98 - 107 [facility] mmol/L [facility] Clin Pathology Creatinine 1.08 0.70 - 1.20 [facility] mg/dL [facility] Pathology Glucose 127 70 - 140 [facility] mg/dL [facility] Pathology Potassium 5.3 (H)Comment: 3.4 - 5.1 [facility] Hemolyzed mmol/L [facility] Pathology Sodium 135 (L) 136 - 145 [facility] mmol/L [facility] Pathology Blood Urea Nitrogen 24 (H) 8 - 23 mg/dL [facility] Pathology Anion Gap 17 (H) 8 - 15 mmol/L [facility] Pathology Osmolality, Sukhi 285 275 - 300 [facility] mosm/kg [facility] Pathology BUN/Cre Ratio 22 [facility] Pathology Calcium 7.7 (L) 8.8 - 10.2 [facility] mg/dL [facility] Pathology GFR Non eGFR is not >60 [facility] 2009 calculated in mL/min/1.73m2 [facility] CDK-EPI patients <18 or Pathology >80 years of age. GFR eGFR is not >60 [facility] 2008 calculated in mL/min/1.73m2 [facility] CKD-EPI patients <18 or Pathology >80 years of age. Specimen Plasma Performing Organization Address City/State/Zipcode Phone Number [facility] CLINICAL PATHOLOGY [address] [place] [address] [phone] [facility] [address] [place] [address] Pathology CBC (03/23/2019 5:00 PM EST) [facility] White Blood Cell 7.9 4 - 10 10*3/uL [facility] Pathology Red Blood Cell 3.42 (L) 4.6 - 6.1 [facility] 10*6/uL Univ Clin Pathology Hemoglobin 10.9 (L) 13.5 - 18 g/dL [facility] Pathology Hematocrit 33.0 (L) 41 - 53 % [facility] Pathology Mean Cell Volume 96.5 (H) 80 - 96 fL [facility] Pathology Mean Cell Hemoglobin 31.9 27 - 33 pg [facility] Pathology Mean Cell Hgb Conc 33.1 32.0 - 36.0 [facility] g/dL Univ Clin Pathology Red Cell Dist Width 14.9 (H) 11.5 - 14.5 % [facility] Pathology Platelet Count 169 150 - 400 [facility] 10*3/uL Univ Clin Pathology Specimen EDTA Whole Blood Performing Organization Address [facility] Phone Number [facility] PATHOLOGY [address] [place] [address] [facility] [address] [place] [address] Pathology TSH (03/23/2019 3:50 PM EST) TSH 2.320 0.270 - 4.200 u[IU]/mL [facility] Pathology Specimen Plasma Performing Organization Address [facility] Phone Number [facility] CLINICAL PATHOLOGY [address] [place] [address] [phone] [facility] [address] [place] [address] Pathology Partial Thromboplastin Time (PTT) (03/23/2019 3:50 PM EST) PTT Patient (PAT) 29.2 24.0 - 34.0 s [facility] Pathology Specimen Plasma Performing Organization Address [facility] Phone Number [facility] CLINICAL PATHOLOGY [address] [place] [address] [phone] [facility] [address] [place] [address] Pathology Protime-INR (03/23/2019 3:50 PM EST) PT Patient 15.2 (H) 12.5 - 14.9 [facility] Univ Clin Pathology Int'l Normalized 1.16Comment: Routine [facility] Ratio intensity oral Univ Clin anticoagulation INR is Pathology typically 2.0-3.0. Target INR must be clinically individualized. Specimen Plasma Performing Organization Address City/[facility]/Zipcode Phone Number [facility] CLINICAL PATHOLOGY [address] [place] [address] [phone] [facility] Univ Clin [address] [place] [address] Pathology T4, free (03/23/2019 3:50 PM EST) [facility] Free Thyroxine 1.19 0.93 - 1.70 ng/dL [facility] Pathology Specimen Plasma Performing Organization Address City/[facility] Phone Number [facility] CLINICAL PATHOLOGY [address] [place] [address] [facility] [address] [place] [address] Pathology CBC and Differential (03/23/2019 3:50 PM EST) [facility] White Blood Cell 9.6 4 - 10 [facility] 10*3/uL [facility] Clin Pathology Red Blood Cell 3.65 (L) 4.6 - 6.1 [facility] 10*6/uL Univ Clin Pathology Hemoglobin 11.6 (L) 13.5 - 18 [facility] g/dL [facility] Clin Pathology Hematocrit 35.0 (L) 41 - 53 % [facility] Pathology Mean Cell Volume 96.0 80 - 96 fL [facility] Pathology Mean Cell Hemoglobin 31.7 27 - 33 pg [facility] Pathology Mean Cell Hgb Conc 33.1 32.0 - 36.0 [facility] g/dL [facility] Clin Pathology Red Cell Dist Width 15.0 (H) 11.5 - 14.5 % [facility] Pathology Platelet Count 232 150 - 400 [facility] 10*3/uL Univ Clin Pathology Differential Type Automated Diff [facility] Univ Clin Pathology Neutrophil 70 % [facility] Univ Clin Pathology Lymphocyte 18 % [facility] Univ Clin Pathology Monocyte 9 % [facility] Univ Clin Pathology Eosinophil 2 % [facility] Univ Clin Pathology Basophil 1 % [facility] Pathology Abs Neutrophil 6.78 1.8 - 7.0 [facility] 10*3/uL Univ Clin Pathology Abs Lymphocyte 1.74 1.2 - 4.0 [facility] 10*3/uL Univ Clin Pathology Abs Monocyte 0.90 (H) 0 - 0.8 [facility] 10*3/uL Univ Clin Pathology Abs Eosinophil 0.16 0 - 0.5 [facility] 10*3/uL Univ Clin Pathology Abs Basophil 0.05 0 - 0.2 [facility] 10*3/uL [facility] Clin Pathology Nucleated Red Blood 0 0 - 0 [facility] Cells /100{WBCs} [facility] Clin Pathology Specimen EDTA Whole Blood Performing Organization Address [facility] Phone Number [facility] PATHOLOGY [address] [place] [address] [phone] [facility] [address] [place] [address] Pathology Basic Metabolic Panel (03/23/2019 3:50 PM EST) Bicarbonate 20 (L) 22 - 29 [facility] mmol/L [facility] Clin Pathology Chloride 104 98 - 107 [facility] mmol/L [facility] Pathology Creatinine 1.17 0.70 - 1.20 [facility] mg/dL [facility] Clin Pathology Glucose 134 70 - 140 [facility] mg/dL [facility] Clin Pathology Potassium 4.2 3.4 - 5.1 [facility] mmol/L Univ Clin Pathology Sodium 136 136 - 145 [facility] mmol/L [facility] Pathology Blood Urea Nitrogen 27 (H) 8 - 23 mg/dL [facility] Pathology Anion Gap 13 8 - 15 mmol/L [facility] Pathology Osmolality, Sukhi 289 275 - 300 [facility] mosm/kg [facility] Pathology BUN/Cre Ratio 23 [facility] Pathology Calcium 8.2 (L) 8.8 - 10.2 [facility] mg/dL [facility] Clin Pathology GFR Non eGFR is not >60 [facility] 2008 calculated in mL/min/1.73m2 [facility] CDK-EPI patients <18 or Pathology >80 years of age. GFR eGFR is not >60 [facility] [place] 2008 calculated in mL/min/1.73m2 [facility] CKD-EPI patients <18 or Pathology >80 years of age. Specimen Plasma Performing Organization Address City/[facility] Phone Number [facility] PATHOLOGY [address] [place] [address] [facility] [address] [place] [address] Pathology POCT i-STAT arterial CG8 (03/23/2019 2:56 PM EST) I-STAT ARTERIAL PH 7.28 (L) 7.38 - 7.44 [facility] POC i-STAT Arterial PCO2 50 (H) 35 - 40 mmHg [facility] POC i-STAT Arterial PO2 150 (H) 95 - 100 mmHg [facility] POC i-STAT Arterial Base NEG 3 mmol/L [facility] Excess [facility] POC i-STAT Arterial SO2 99 94 - 100 % [facility] POC i-STAT Arterial Total 25 mmol/L [facility] CO2 [facility] POC i-STAT Sodium 139 136 - 145 [facility] mmol/L [facility] POC i-STAT Potassium 4.0 3.4 - 5.1 [facility] mmol/L [facility] POC i-STAT Ionized 1.22 1.13 - 1.32 [facility] Calcium mmol/L [facility] POC i-STAT Glucose 130 70 - 140 mg/dL [facility] POC i-STAT Hematocrit 34 (L) 41 - 53 % [facility] POC i-STAT Hemoglobin 11.6 (L) 13.5 - 18.0 [facility] g/dL [facility] POC Specimen Whole Blood Performing Organization Address City/State/[place] Phone Number POINT OF CARE TEST [address] POC [address] [place] [address] CROSSMATCH, PAT (03/23/2019 1:30 PM EST) Crossmatch 03/25/2019 [facility] Expiration Univ Clin Pathology ABO/RH(D) O POS [facility] Pathology Site Performed at [facility] Univ Clin [facility] UNIT NUMBER [id number] [facility] Pathology Blood Component Leukoreduced Red [facility] Type Cell, 2nd Container Univ Clin Pathology Unit Division 00 [facility] Univ Clin Pathology STATUS OF UNIT REL FROM ALLOC [facility] Univ Clin Pathology TRANSFUSION STATUS OK TO TRANSFUSE [facility] Pathology CROSSMATCH RESULT Compatible [facility] Pathology UNIT NUMBER [id number] [facility] Pathology Blood Component Leukoreduced Red [facility] Type Cells Univ Clin Pathology Unit Division 00 [facility] Univ Clin Pathology STATUS OF UNIT REL FROM ALLOC [facility] Univ Clin Pathology TRANSFUSION STATUS OK TO TRANSFUSE [facility] Clin Pathology CROSSMATCH RESULT Compatible [facility] Pathology UNIT NUMBER [id number] [facility] Pathology Blood Component Leukoreduced Red [facility] Type Cell, 2nd Container Univ Clin Pathology Unit Division 00 [facility] Pathology STATUS OF UNIT REL FROM ALLOC [facility] Clin Pathology TRANSFUSION STATUS OK TO TRANSFUSE [facility] Pathology CROSSMATCH RESULT Compatible [facility] Pathology UNIT NUMBER [id number] [facility] Pathology Blood Component Leukoreduced Red [facility] Type Cell, 2nd Container Univ Clin Pathology Unit Division 00 [facility] Pathology STATUS OF UNIT REL FROM ALLOC [facility] Pathology TRANSFUSION STATUS OK TO TRANSFUSE [facility] Pathology CROSSMATCH RESULT Compatible [facility] Pathology Specimen EDTA Whole Blood Performing Organization Address City/[facility]/Zipcode Phone Number [facility] CLINICAL PATHOLOGY [address] [place] [address] [facility] [address] [place] [address] Pathology POCT glucose, docked (03/23/2019 11:37 AM EST) POC Glucose 89 70 - 140 mg/dL [facility] POC Specimen Whole Blood Performing Organization Address City/[facility] Phone Number POINT OF CARE TEST [address] [place], [place] [id number] [place] [address] POC [address] [place] [address] documented in this encounter Visit Diagnoses Diagnosis Renal cell carcinoma of left kidney - Primary Anemia Anemia, unspecified Essential hypertension Unspecified essential hypertension Hyperlipidemia Other and unspecified hyperlipidemia Chronic obstructive pulmonary disease (COPD) Chronic airway obstruction, not elsewhere classified DENZEL (obstructive sleep apnea) Obstructive sleep apnea (adult) (pediatric) Obesity (BMI 35.0-39.9 without comorbidity) Obesity, unspecified Nonrheumatic aortic valve stenosis Aortic valve disorders Hyperlipidemia associated with type 2 diabetes mellitus Depressive disorder Depressive disorder, not elsewhere classified Left renal mass Unspecified disorder of kidney and ureter 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 Low back pain Lumbago Acquired kyphosis Kyphosis (acquired) (postural) Generalized osteoarthritis Generalized osteoarthrosis, unspecified site Aggression aggravated Explosive personality disorder documented in this encounter Administered Medications Medication Order MAR Action Action Date Dose Rate Site aspirin EC EC tablet 81 mg Given 03/24/2019 10:16 AM EST 81 mg 81 mg, Oral, Every morning, First dose on Sat03/24/19 at 0900, For 30 days atenolol (TENORMIN) tablet 50 mg Given 03/23/2019 8:51 PM EST 50 mg 50 mg, Oral, 2 Times Daily, First dose on Sat03/23/19 at 2100, For 30 days, Check vital signs before administering, atorvastatin (LIPITOR) tablet 40 mg Given 03/23/2019 8:51 PM EST 40 mg 40 mg, Oral, Nightly, First dose on Sat03/23/19 at 2200, For 30 days, Hazardous drug. Follow precautions. Dispose of properly., docusate sodium (COLACE) capsule 100 mg Given 03/24/2019 8:26 AM EST 100 mg 100 mg, Oral, 2 Times Daily, First dose on Sat03/23/19 at 2100, For 30 days Given 03/23/2019 8:51 PM EST 100 mg fluoxetine (PROZAC) capsule 40 mg Given 03/24/2019 8:26 AM EST 40 mg 40 mg, Oral, Every morning, First dose on Sat03/24/19 at 0900, For 3 doses gabapentin (NEURONTIN) capsule 100 mg Given 03/24/2019 8:26 AM EST 100 mg 100 mg, Oral, Three Times Daily Standard, First dose on Sat03/23/19 at 2100, For 30 days Given 03/23/2019 8:51 PM EST 100 mg heparin (porcine) 5000 UNIT/ML Given 03/24/2019 8:23 AM EST 5,000 Units Right Arm injection 5,000 Units 5,000 Units, Subcutaneous, Three Times Daily Standard, First dose on Sat03/23/19 at 2100, For 30 days Given 03/23/2019 8:51 PM EST 5,000 Units NaCl infusion 0.9 % New Bag 03/24/2019 3:49 AM EST 100 mL/hr at 100 mL/hr, Intravenous, Continuous, Starting Sat03/23/19 at 1730, For 30 days Rate/Dose Change 03/23/2019 7:21 PM EST 100 mL/hr New Bag 03/23/2019 6:05 PM EST 150 mL/hr tolterodine (DETROL LA) 24 hr capsule 4 mg Given 03/24/2019 10:16 AM EST 4 mg 4 mg, Oral, 2 Times Daily, First dose on Sat03/23/19 at 2100, For 6 doses Given 03/23/2019 8:51 PM EST 4 mg tramadol (ULTRAM) tablet 100 mg Given 03/24/2019 6:26 AM EST 100 mg 100 mg, Oral, Every 6 hours PRN, Severe Pain (Pain Scale Score 7-10), Starting Sat03/23/19 at 1841, For 3 days tramadol (ULTRAM) tablet 50 mg Given 03/23/2019 11:35 PM EST 50 mg 50 mg, Oral, Every 6 hours PRN, Moderate Pain (Pain Scale Score 4-6), Starting Sat03/23/19 at 1841, For 3 days Medication Order MAR Action Action Date Dose Rate Site acetaminophen (OFIRMEV) Started During 03/24/2019 2:29 1,000 mg 400 mL/hr infusion 1,000 mg Downtime PM EST 1,000 mg, Intravenous, Administer over 15 Minutes, Every 8 hours, First dose on Sat03/23/19 at 2230, For 3 doses, Maximum dose 3 gm daily from all sources, New Bag 03/24/2019 6:26 AM EST 1,000 mg 400 mL/hr New Bag 03/23/2019 10:48 PM EST 1,000 mg 400 mL/hr fentaNYL (SUBLIMAZE) (PF) Given by IV push 03/23/2019 5:40 PM EST 12.5 mcg injection 12.5 mcg 12.5 mcg, Intravenous, Every 5 min PRN, Severe Pain (Pain Scale Score 7-10), Starting Sat03/23/19 at 1714, For 4 doses, Recovery Given by IV push 03/23/2019 5:30 PM EST 12.5 mcg heparin (porcine) 5000 Given 03/23/2019 1:45 PM 5,000 Units Right Anterior UNIT/ML injection 5,000 EST Thigh Units 5,000 Units, Subcutaneous, Once, Sat03/23/19 at 1100, For 1 dose, Pre-op, preop, Magnesium Oxide (MAG-OX) tablet 400 mg Given 03/24/2019 6:26 AM EST 400 mg 400 mg, Oral, Daily Standard, First dose on Sat03/24/19 at 0600, For 1 day documented in this encounter
--- NOTE | 2019-05-07 12:58 | ED ---
GI/ HPI - HPI Summary HPI Summary: This patient is an 84-year-old male with history of renal cell carcinoma with a recent left nephrectomy in March presenting to the ED with concern for abnormal labs. He states he was called by his oncologist from [place] this morning stating he needed to be seen in the ED. He states he was not sure what this was for but states his potassium level was 5.7. He also endorsed a high creatinine. He denies any symptoms. He denies any urinary symptoms, abdominal pain, chest pain or shortness of breath. He states he has been having a difficult time traveling up to [place] for blood draws and is requesting to have his blood draws here in [place]. - History of Current Complaint Chief Complaint: EDGeneral Time Seen by Provider: 05/07/19 10:23 Stated Complaint: ABNORMAL BLOOD TEST RESULTS PER PT Hx Obtained From: Patient, Medical Records Onset/Duration: Started Hours Ago Pain Intensity: 0 Associated Signs and Symptoms: Positive: Negative Aggravating Factor(s): Nothing Alleviating Factor(s): Nothing - Allergy/Home Medications Allergies/Adverse Reactions: Allergies Allergy/AdvReac Type Severity Reaction Status Date / Time amoxicillin Allergy Unknown Verified 05/07/19 11:49 Reaction Details cefuroxime [From Ceftin] Allergy Unknown Verified 05/07/19 11:49 Reaction Details clavulanic acid Allergy Unknown Verified 05/07/19 11:49 [From Augmentin] Reaction Details Penicillins Allergy Unknown Verified 05/07/19 11:49 Reaction Details SULFA Allergy Unknown Uncoded 02/03/19 11:44 Reaction Details Home Medications: Home Medications Atorvastatin* [Lipitor 20 MG*] 40 mg PO BEDTIME 10/18/17 [History Confirmed ] FLUoxetine CAP* [Prozac CAP*] 40 mg PO DAILY 10/18/17 [History Confirmed ] Multivitamin/Iron/Folic Acid [Centrum Adults Tablet] 1 tab PO DAILY 10/18/17 [ History Confirmed 05/07/19] [place]-3 Fatty Acids/Fish Oil [Fish Oil 1,000 mg Capsule] 1,000 mg PO BID [History Confirmed 05/07/19] Spironolactone 25 mg PO DAILY 10/18/17 [History Confirmed 05/07/19] Tolterodine Tartrate [Tolterodine Tartrate ER] 4 mg PO BID 10/18/17 [History Confirmed 05/07/19] atenoloL [Atenolol] 50 mg PO BID 10/18/17 [History Confirmed 05/07/19] dilTIAZem HCl [Cartia Xt] 120 mg PO DAILY 10/18/17 [History Confirmed 05/07/19] lisinopriL [Lisinopril 2.5 MG-] 2.5 mg PO DAILY 10/18/17 [History Confirmed ] Albuterol HFA INHALER* [Ventolin HFA Inhaler*] 2 puff INH Q4H PRN 05/07/19 [ History Confirmed 05/07/19] Aspirin EC TAB* [Ecotrin EC Low Dose 81 MG*] 81 mg PO DAILY 05/07/19 [History Confirmed 05/07/19] Cyanocobalamin TAB* [Vitamin B12 TAB*] 200 mcg PO DAILY 05/07/19 [History Confirmed 05/07/19] Docusate CAP* [Colace Cap*] 100 mg PO BID 05/07/19 [History Confirmed 05/07/19] Magnesium Gluconate 500 mg PO DAILY 05/07/19 [History Confirmed 05/07/19] Umeclidinium [place] [Incruse Ellipta] 1 inh PO QAM 05/07/19 [History Confirmed 05/07/19] PMH/Surg Hx/FS Hx/Imm Hx Endocrine/Hematology History: Denies: Hx Diabetes Cardiovascular History: Reports: Hx Hypertension Denies: Hx Pacemaker/ICD Respiratory History: Denies: Hx Asthma History: Reports: Hx Renal Disease - abnormal gfr Denies: Hx Dialysis Sensory History: Reports: Hx Hearing Aid - BILATERAL Psychiatric History: Reports: Hx Panic Disorder - Cancer History Cancer Type, Location and Year: 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 LEFT KNEE ;. TONSILLECTOMY ;. 2017 [facility] AAA REPAIR, DR. LANDY WILSON - 3 IMPLANTS PT HAS CARD FOR THIS . [employer] MODEL NUMBERS [id number] AND [id number] (X2) MRI CONDITIONAL TO 3T, NORMAL OR FIRST LEVEL EDGARDO 4W/KG;. 2017 [facility] VALVE REPLACEMENT [facility]. PT IS BRINGING CARDS TO MRI FOR SCAN IN - Immunization History Hx Pertussis Vaccination: No Immunizations Up to Date: Yes Infectious Disease History: No Infectious Disease History: Denies: Traveled Outside the [place] in Last 30 Days - Family History Known Family History: Positive: Other Negative: Hypertension, Diabetes Family History: COPD and heart attack father; [place] mother - Social History Occupation: Unemployed Lives: With Family Alcohol Use: None Hx Substance Use: No Substance Use Type: Reports: None Hx Tobacco Use: Yes Smoking Status (MU): Former Smoker Review of Systems Negative: Fever, Chills, Fatigue, Skin Diaphoresis Negative: Palpitations, Chest Pain Negative: Shortness Of Breath, Cough Positive: see HPI. Negative: flank pain Negative: Arthralgia, Myalgia Skin: Negative Neurological/Mental Status: Negative All Other Systems Reviewed And Are Negative: Yes Physical Exam Triage Information Reviewed: Yes Vital Signs On Initial Exam: Initial Vitals Temp Pulse Resp BP Pulse Ox 98.3 F 70 16 156/103 98 05/07/19 10:17 05/07/19 10:17 05/07/19 10:17 05/07/19 10:17 05/07/19 10:17 Vital Signs Reviewed: Yes Appearance: Positive: Well-Appearing, Well-Nourished Skin: Positive: Warm, Skin Color Reflects Adequate Perfusion Head/Face: Positive: Normal Head/Face Inspection Eyes: Positive: EOMI, JOSEPH, Conjunctiva Clear Neck: Positive: Supple, No Lymphadenopathy Respiratory/Lung Sounds: Positive: Clear to Auscultation, Breath Sounds Present Cardiovascular: Positive: RRR, Pulses are Symmetrical in both Upper and Lower Extremities Musculoskeletal: Positive: Normal, Strength/ROM Intact Neurological: Positive: Speech Normal Psychiatric: Positive: Normal, Affect/Mood Appropriate AVPU Assessment: Alert Procedures - Sedation Patient Received Moderate/Deep Sedation with Procedure: No Diagnostics - Vital Signs Vital Signs Temp Pulse Resp BP Pulse Ox 05/07/19 11:28 63 119/57 93 05/07/19 11:01 64 95 05/07/19 10:58 113/67 05/07/19 10:28 70 149/62 93 05/07/19 10:17 98.3 F 70 16 156/103 98 - Laboratory Lab Results: Lab Results 05/07/19 05/07/19 05/07/19 Range/Units 10:36 10:36 10:36 WBC 9.8 (3.5-10.8) 10^3/uL RBC 3.87 L (4.18-5.48) 10^6 /uL Hgb 12.6 L (14.0-18.0) g/dL Hct 38 L (42-52) % MCV 97 H (80-94) fL MCH 33 H (27-31) pg MCHC 34 (31-36) g/dL RDW 15 (10-15) % Plt Count 161 (150-450) 10^3/uL MPV 7.4 (7.4-10.4) fL Neut % (Auto) 77.3 % Lymph % (Auto) 13.0 % [place] % (Auto) 7.6 % Eos % (Auto) 1.7 % Baso % (Auto) 0.4 % Absolute Neuts (auto) 7.6 (1.5-7.7) 10^3/ul Absolute Lymphs (auto) 1.3 (1.0-4.8) 10^3/ul Absolute Monos (auto) 0.7 (0-0.8) 10^3/ul Absolute Eos (auto) 0.2 (0-0.6) 10^3/ul Absolute Basos (auto) 0.0 (0-0.2) 10^3/ul Absolute Nucleated RBC 0.0 10^3/ul Nucleated RBC % 0.0 Sodium 135 (135-145) mmol/L Potassium 5.0 (3.5-5.0) mmol/L Chloride 106 (101-111) mmol/L Carbon Dioxide 22 (22-32) mmol/L Anion Gap 7 (2-11) mmol/L BUN 48 H (6-24) mg/dL Creatinine 1.74 H (0.67-1.17) mg/dL Est GFR ( Amer) 45.5 (>60) Est GFR (Non-Af Amer) 37.6 (>60) BUN/Creatinine Ratio 27.6 H (8-20) Glucose 136 H (70-100) mg/dL Lactic Acid 0.9 (0.5-2.0) mmol/L Calcium 9.1 (8.6-10.3) mg/dL Magnesium 1.8 L (1.9-2.7) mg/dL Total Bilirubin 0.70 (0.2-1.0) mg/dL AST 13 (13-39) U/L ALT 10 (7-52) U/L Alkaline Phosphatase 78 (34-104) U/L C-Reactive Protein 5.34 (<8.01) mg/L Total Protein 7.5 (6.4-8.9) g/dL Albumin 4.1 (3.2-5.2) g/dL Globulin 3.4 (2-4) g/dL Albumin/Globulin Ratio 1.2 (1-3) Lipase 57 (11.0-82.0) U/L Result Diagrams: 05/07/19 10:36 05/07/19 10:36 Lab Statement: Any lab studies that have been ordered have been reviewed, and results considered in the medical decision making process. GIGU Course/Dx - Course Course Of Treatment: Patient arrives with concern for abnormal level labs that were drawn yesterday. He states his [place] physician called him this morning and recommended he come to the ED, however he is unsure why. He states his potassium level was too high. Labs were drawn and his potassium level today is 5.0. His creatinine 1.72. He was given 1 L fluids. Discussed case with Dr. Owen, oncology fellow in [place]. Dr. Owen advised holding spironolactone and Lisinopril at this time. As patient has difficulty traveling to [place], it was recommended if unable to travel, he can have labs drawn here and faxed to [place]. He does not have a follow-up with his oncologist, Dr. Najera in [facility] until June 02. It was recommended he have labs drawn on Saturday to assess kidney function. Called Dr. Houser office and spoke with RN, Tamika who will inform Dr. Roche of the BP medications and blood draws as early as Saturday. Advised pt to call office for an appt with Dr. Roche. Pt OK with plan and discharge. Continues to remain asymptomatic. - Diagnoses Provider Diagnoses: Hyperkalemia Discharge ED - Sign-Out/Discharge Documenting (check all that apply): Patient Departure - Discharge Plan Condition: Stable Disposition: HOME Patient Education Materials: Hyperkalemia (ED) Referrals: Silvio Roche MD [Primary Care Provider] - Additional Instructions: Please get a blood draw through Dr. Roche's office on Saturday They will fax this information to your oncologist in [place] You will discontinue your Spironolactone and Lisinopril medications until further directed by Dr. Roche or Dr. Dale Diane Disposition and Condition Condition: STABLE Disposition: Home - Attestation Statements Provider Attestation: I was available for consultation for this patient. I did not evaluate the patient or participate in any medical decision making or disposition decisions unless I am specifically named in the chart as having consulted on the patient. If I have consulted on the patient, please see my own ED note on the patient encounter. Pavel Urbina MD
[2019-05-07 13:07] VITALS: BP 140/75
[2019-05-07 13:38] LABS: Urine Appearance Clear; Urine Bilirubin Negative (Negative); Urine Blood Negative (Negative); Urine Color Yellow; Urine Glucose Negative (Negative); Urine Ketones Negative (Negative); Urine Nitrite Negative (Negative); Urine Protein Negative (Negative); Urine Specific Gravity 1.014 (1.010-1.030); Urine Urobilinogen Negative (Negative)
[2019-05-07 13:54] LABS: Urine Bacteria Absent (Absent); Urine Red Blood Cell Trace(0-2/hpf) (Absent); Urine White Blood Cell Trace(0-5/hpf) (Absent)
== END 2019-05-07 13:06 | disposition home or self-care (01) ==
LOC: ED 10:12
DX: E87.5 Hyperkalemia (principal); I10 Essential (primary) hypertension; F41.0 Panic disorder [episodic paroxysmal anxiety]; Z90.5 Acquired absence of kidney; Z85.528 Personal history of other malignant neoplasm of kidney; Z85.820 Personal history of malignant melanoma of skin; Z95.2 Presence of prosthetic heart valve; Z87.891 Personal history of nicotine dependence; Z79.82 Long term (current) use of aspirin; Z79.899 Other long term (current) drug therapy; Z88.0 Allergy status to penicillin; Z88.1 Allergy status to other antibiotic agents; Z88.2 Allergy status to sulfonamides
CPT/HCPCS: 36415; 80053; 81003; 81015; 83605; 83690; 83735; 85025; 86140; 87086; 96360; 99283

== ENCOUNTER 2020-07-14 12:16 | Observation (INO) ==
[2020-07-14] MEDS ORDERED: Dexamethasone IV 4 MG/ML VIAL 1 ml VIAL IV SLOW PU ONE (13:33)
[2020-07-14] MEDS ORDERED: Albuterol HFA INHALER 8 gm MDI INH ONE (13:33)
[2020-07-14] MEDS ORDERED: Aztreonam 2 GM in NS 0.9% 50 ML 50 ML IVPB ONE (13:34)
[2020-07-14] MEDS ORDERED: Aztreonam 2 GM in NS 0.9% 100 ml BAG 100 ML IVPB ONE (13:37)
[2020-07-14 13:41] LABS: ABS Eosinophils 0.2 10^3/ul (0-0.6); ABS Lymphocytes 1.1 10^3/ul (1.0-4.8); ABS Monocytes 1.2 10^3/ul (0-0.8); ABS Neutrophils 8.1 10^3/ul (1.5-7.7); Eosinophil % 1.5 %; Hematocrit 37 % (42-52); Hemoglobin 12.4 g/dL (14.0-18.0); Mean Corpuscular HGB Conc 33 g/dL (31-36); Mean Corpuscular Hemoglobin 33 pg (27-31); Mean Corpuscular Volume 99 fL (80-94); Mean Platelet Volume 7.7 fL (7.4-10.4); Platelet Count 153 10^3/uL (150-450); Red Blood Count 3.77 10^6 /uL (4.18-5.48); Red Cell Distribution Width 14 % (10-15); White Blood Count 10.5 10^3/uL (3.5-10.8)
[2020-07-14 13:50] LABS: Activated Partial Thrombo Time 28.2 seconds (26.0-38.0); INR 1.16 (0.82-1.09)
[2020-07-14] MEDS ORDERED: NS 0.9% 100 ml BAG 100 ML ONE (14:01)
[2020-07-14 14:13] LABS: Albumin 3.8 g/dL (3.2-5.2); Albumin/Globulin Ratio 1.3 (1-3); C Reactive Protein 39.59 mg/L (<8.01); Calcium 8.7 mg/dL (8.6-10.3); EGFR African American 51.4 (>60); EGFR Non-African American 42.5 (>60); Potassium 4.4 mmol/L (3.5-5.0); Total Protein 6.8 g/dL (6.4-8.9)
[2020-07-14] MEDS: Levofloxacin 750 MG IVPREMIX 750 MG/150 ML BAG IVPB ONE ×2 (14:21→14:43)
[2020-07-14 14:41] LABS: Troponin I 0.01 ng/mL (<0.03)
[2020-07-14 17:59] LABS: Urine Appearance Clear; Urine Bilirubin Negative (Negative); Urine Blood Negative (Negative); Urine Color Yellow; Urine Glucose Negative (Negative); Urine Ketones Negative (Negative); Urine Nitrite Negative (Negative); Urine Protein 2+(100 mg/dL) (Negative); Urine Specific Gravity 1.019 (1.002-1.030); Urine Urobilinogen Negative (Negative)
[2020-07-14] MEDS ORDERED: DOXYcycline IV 100 MG in NS 0.9% 250 ML IVPB ONE (18:00)
[2020-07-14] MEDS ORDERED: Albuterol HFA INHALER 8 gm MDI INH PRN (18:07)
[2020-07-14 18:15] LABS: Urine Bacteria Absent (Absent); Urine Red Blood Cell Absent (Absent); Urine White Blood Cell Trace(0-5/hpf) (Absent)
[2020-07-14] MEDS: Heparin 5000 UNITS/ML 1 mL VIAL SUBCUT SCH (21:36)
[2020-07-14] MEDS: Nystatin TOP POWDER 15 GM BTL TOPICAL SCH (21:37)
[2020-07-15] MEDS: Heparin 5000 UNITS/ML 1 mL VIAL SUBCUT SCH ×2 (05:39→17:19)
[2020-07-15 06:02] LABS: ABS Lymphocytes 1.1 10^3/ul (1.0-4.8); ABS Monocytes 0.8 10^3/ul (0-0.8); ABS Neutrophils 7.9 10^3/ul (1.5-7.7); Eosinophil % 0.1 %; Hematocrit 37 % (42-52); Hemoglobin 12.4 g/dL (14.0-18.0); Lymphocyte % 10.7 %; Mean Corpuscular HGB Conc 34 g/dL (31-36); Mean Corpuscular Hemoglobin 34 pg (27-31); Mean Corpuscular Volume 99 fL (80-94); Mean Platelet Volume 7.9 fL (7.4-10.4); Nucleated Red Blood Cells % 0.1; Platelet Count 166 10^3/uL (150-450); Red Cell Distribution Width 15 % (10-15); White Blood Count 9.8 10^3/uL (3.5-10.8)
[2020-07-15 06:23] LABS: Albumin 3.7 g/dL (3.2-5.2); Albumin/Globulin Ratio 1.2 (1-3); Calcium 8.7 mg/dL (8.6-10.3); EGFR African American 53.8 (>60); EGFR Non-African American 44.5 (>60); Indirect Bilirubin 0.5 mg/dL (0.3-1.0); Potassium 4.4 mmol/L (3.5-5.0); Total Bilirubin 0.6 mg/dL (0.2-1.0); Total Protein 6.7 g/dL (6.4-8.9)
[2020-07-15] MEDS ORDERED: DOXYcycline 100 MG in NS 0.9% 250 ml 250 ML IVPB SCH (08:00)
[2020-07-15] MEDS ORDERED: Aspirin EC 81 mg TAB.EC (enteric coated) PO SCH (09:00)
[2020-07-15] MEDS ORDERED: SPIRIVA Respimat (tiotropium) 2.5 mcg/inh Inhaler INH SCH (09:00)
[2020-07-15] MEDS: Nystatin TOP POWDER 15 GM BTL TOPICAL SCH ×2 (09:39→17:19)
[2020-07-15 16:39] VITALS: BP 118/65
== END 2020-07-15 18:40 | disposition home or self-care (01) ==
LOC: ED 12:16 → MED 12:16
PROVIDERS: ADMIT Internal Medicine; ATTEND Hospitalist

== ENCOUNTER 2020-07-17 10:59 | Inpatient (IN) ==
[2020-07-17 12:00] LABS: Hematocrit 25 % (42-52); Hemoglobin 8.2 g/dL (14.0-18.0); Mean Corpuscular HGB Conc 33 g/dL (31-36); Mean Corpuscular Hemoglobin 32 pg (27-31); Mean Corpuscular Volume 99 fL (80-94); Mean Platelet Volume 7.6 fL (7.4-10.4); Platelet Count 170 10^3/uL (150-450); Red Blood Count 2.55 10^6 /uL (4.18-5.48); Red Cell Distribution Width 14 % (10-15); White Blood Count 18.5 10^3/uL (3.5-10.8)
[2020-07-17 12:04] LABS: ABS Lymphocytes 2.2 10^3/ul (1.0-4.8); ABS Monocytes 1.6 10^3/ul (0-0.8); ABS Neutrophils 14.7 10^3/ul (1.5-7.7); Eosinophil % 0.1 %; Lymphocyte % 11.7 %
[2020-07-17] MEDS ORDERED: NS 0.9% 1000 ml BAG 1,000 ML IV ONE (12:12)
[2020-07-17] MEDS ORDERED: Pantoprazole VIAL 40 MG VIAL IV ONE ×2 (12:12→12:15)
[2020-07-17] MEDS: NS 0.9% 1000 ml BAG 1,000 ML IV.FLUID IV ONE ×2 (12:14)
[2020-07-17] MEDS ORDERED: Pantoprazole 80 mg in NS BAG 80 MG/250 ML BAG IV ONE (12:15)
[2020-07-17 12:16] LABS: Albumin 3.1 g/dL (3.2-5.2); Albumin/Globulin Ratio 1.3 (1-3); C Reactive Protein 10.88 mg/L (<8.01); Calcium 8.5 mg/dL (8.6-10.3); EGFR Non-African American 34.7 (>60); Globulin 2.3 g/dL (2-4); Magnesium 1.7 mg/dL (1.9-2.7); Potassium 4.9 mmol/L (3.5-5.0); Total Bilirubin 0.4 mg/dL (0.2-1.0); Total Protein 5.4 g/dL (6.4-8.9)
[2020-07-17 12:18] LABS: Troponin I 0.01 ng/mL (<0.03)
[2020-07-17 12:36] LABS: Urine Appearance Clear; Urine Bilirubin Negative (Negative); Urine Blood Negative (Negative); Urine Color Yellow; Urine Glucose Negative (Negative); Urine Ketones Negative (Negative); Urine Nitrite Negative (Negative); Urine Protein Negative (Negative); Urine Specific Gravity 1.016 (1.002-1.030); Urine Urobilinogen Negative (Negative)
[2020-07-17] MEDS ORDERED: Magnesium Sulfate 2 gm BAG 2 GM/50 ML BAG IVPB ONE (12:51)
[2020-07-17 13:41] LABS: INR 1.23 (0.82-1.09)
[2020-07-17] MEDS ORDERED: Dextrose 50% Syringe 50 ml 25 GM/50 ML SYRINGE IV PUSH PRN (13:50)
[2020-07-17] MEDS ORDERED: Albuterol/Ipratropium NEB.SOL (2.5/0.5 MG) 3 ML NEB.SOLN INH PRN (13:52)
[2020-07-17] MEDS ORDERED: Albuterol HFA INHALER 8 gm MDI INH PRN (14:13)
[2020-07-17] MEDS: Nystatin TOP POWDER 15 GM BTL TOPICAL SCH ×2 (15:18→22:06)
[2020-07-17 16:14] LABS: Hematocrit 22 % (42-52); Hemoglobin 7.4 g/dL (14.0-18.0)
[2020-07-18 00:06] LABS: Hematocrit 23 % (42-52); Hemoglobin 7.5 g/dL (14.0-18.0)
[2020-07-18] MEDS: Pantoprazole 80 mg in NS BAG 80 MG/250 ML BAG IV SCH ×2 (00:30→11:16)
[2020-07-18 02:23] LABS: Hematocrit 24 % (42-52); Hemoglobin 7.9 g/dL (14.0-18.0)
[2020-07-18 05:47] LABS: Hematocrit 22 % (42-52); Hemoglobin 7.2 g/dL (14.0-18.0); Mean Corpuscular HGB Conc 33 g/dL (31-36); Mean Corpuscular Hemoglobin 33 pg (27-31); Mean Corpuscular Volume 98 fL (80-94); Mean Platelet Volume 7.3 fL (7.4-10.4); Platelet Count 121 10^3/uL (150-450); Red Blood Count 2.21 10^6 /uL (4.18-5.48); Red Cell Distribution Width 15 % (10-15); White Blood Count 11.9 10^3/uL (3.5-10.8)
[2020-07-18 05:53] LABS: INR 1.19 (0.82-1.09)
[2020-07-18 06:05] LABS: ABS Eosinophils 0.2 10^3/ul (0-0.6); ABS Lymphocytes 2.5 10^3/ul (1.0-4.8); ABS Monocytes 1.2 10^3/ul (0-0.8); ABS Neutrophils 7.9 10^3/ul (1.5-7.7); Eosinophil % 1.6 %; Lymphocyte % 21.3 %
[2020-07-18 06:31] LABS: Albumin 2.9 g/dL (3.2-5.2); Potassium 4.6 mmol/L (3.5-5.0); Total Bilirubin 0.6 mg/dL (0.2-1.0)
[2020-07-18 06:37] LABS: Albumin/Globulin Ratio 1.6 (1-3); EGFR African American 39.8 (>60); EGFR Non-African American 32.9 (>60); Globulin 1.8 g/dL (2-4); Total Protein 4.7 g/dL (6.4-8.9)
[2020-07-18] MEDS: Nystatin TOP POWDER 15 GM BTL TOPICAL SCH ×3 (08:01→20:30)
[2020-07-18] MEDS: SPIRIVA Respimat (tiotropium) 2.5 mcg/inh Inhaler INH SCH (08:09)
[2020-07-18] MEDS: Multivitamins/Minerals TAB PO SCH (11:16)
[2020-07-18 14:10] LABS: Hematocrit 25 % (42-52); Hemoglobin 8.5 g/dL (14.0-18.0)
[2020-07-18] MEDS ORDERED: fentaNYL 100 mcg/2 ml 50 MCG/ML VIAL ONE (14:47)
[2020-07-18] MEDS ORDERED: Midazolam 10 mg/10 ml VIAL 1 mg/ml 10 ml VIAL (10 mg) ONE (14:47)
[2020-07-18 20:35] LABS: Hematocrit 24 % (42-52)
[2020-07-19] MEDS: Pantoprazole 80 mg in NS BAG 80 MG/250 ML BAG IV SCH ×2 (01:14→06:41)
[2020-07-19] MEDS ORDERED: Benzocaine/Menthol LOZ MT PRN (03:15)
[2020-07-19 05:45] LABS: Hematocrit 24 % (42-52); Hemoglobin 8.1 g/dL (14.0-18.0); Mean Corpuscular HGB Conc 34 g/dL (31-36); Mean Corpuscular Hemoglobin 33 pg (27-31); Mean Corpuscular Volume 97 fL (80-94); Mean Platelet Volume 7.6 fL (7.4-10.4); Platelet Count 132 10^3/uL (150-450); Red Blood Count 2.48 10^6 /uL (4.18-5.48); Red Cell Distribution Width 16 % (10-15); White Blood Count 11.6 10^3/uL (3.5-10.8)
[2020-07-19 05:58] LABS: Calcium 8.1 mg/dL (8.6-10.3); EGFR African American 42.3 (>60); EGFR Non-African American 34.9 (>60); Potassium 4.2 mmol/L (3.5-5.0)
[2020-07-19] MEDS: SPIRIVA Respimat (tiotropium) 2.5 mcg/inh Inhaler INH SCH (08:02)
[2020-07-19] MEDS: Multivitamins/Minerals TAB PO SCH (10:37)
[2020-07-19] MEDS: Nystatin TOP POWDER 15 GM BTL TOPICAL SCH ×3 (10:40→21:30)
[2020-07-19] MEDS ORDERED: Pantoprazole 80 mg in NS BAG 80 MG/250 ML BAG IV SCH (11:30)
[2020-07-19] MEDS ORDERED: Furosemide 20 mg/2 ml IV VIAL IV ONE (13:25)
[2020-07-20 05:44] LABS: Hematocrit 25 % (42-52); Hemoglobin 8.2 g/dL (14.0-18.0); Mean Corpuscular HGB Conc 33 g/dL (31-36); Mean Corpuscular Hemoglobin 33 pg (27-31); Mean Corpuscular Volume 99 fL (80-94); Mean Platelet Volume 7.3 fL (7.4-10.4); Platelet Count 152 10^3/uL (150-450); Red Blood Count 2.54 10^6 /uL (4.18-5.48); Red Cell Distribution Width 15 % (10-15); White Blood Count 12.5 10^3/uL (3.5-10.8)
[2020-07-20 06:02] LABS: EGFR African American 39.3 (>60); EGFR Non-African American 32.5 (>60); Potassium 3.7 mmol/L (3.5-5.0)
[2020-07-20] MEDS: Multivitamins/Minerals TAB PO SCH (07:23)
[2020-07-20] MEDS: Nystatin TOP POWDER 15 GM BTL TOPICAL SCH ×2 (07:24→13:29)
[2020-07-20 07:39] LABS: ABS Basophils 0.1 10^3/ul (0-0.2); ABS Eosinophils 0.3 10^3/ul (0-0.6); ABS Lymphocytes 2.1 10^3/ul (1.0-4.8); ABS Monocytes 1.1 10^3/ul (0-0.8); Eosinophil % 2.4 %
[2020-07-20] MEDS: SPIRIVA Respimat (tiotropium) 2.5 mcg/inh Inhaler INH SCH (07:49)
[2020-07-20] MEDS ORDERED: Mometasone/Formoter 200/5 MDI INH SCH (10:00)
[2020-07-20] MEDS ORDERED: Iron Sucrose 200 MG in NS 0.9% 100 ml BAG 100 ML IVPB ONE (10:00)
[2020-07-20 14:14] VITALS: BP 121/59
== END 2020-07-20 17:00 | disposition home health service (06) ==
LOC: ED 10:59 → MED 13:14
PROVIDERS: ADMIT Hospitalist; ATTEND Internal Medicine

== ENCOUNTER 2020-08-01 09:25 | Inpatient (IN) ==
[2020-08-01 11:44] LABS: ABS Eosinophils 0.3 10^3/ul (0-0.6); ABS Lymphocytes 0.9 10^3/ul (1.0-4.8); ABS Monocytes 0.6 10^3/ul (0-0.8); ABS Neutrophils 6.5 10^3/ul (1.5-7.7); Eosinophil % 3.7 %; Hematocrit 28 % (42-52); Hemoglobin 9.3 g/dL (14.0-18.0); Lymphocyte % 10.8 %; Mean Corpuscular HGB Conc 33 g/dL (31-36); Mean Corpuscular Hemoglobin 33 pg (27-31); Mean Corpuscular Volume 99 fL (80-94); Mean Platelet Volume 7.4 fL (7.4-10.4); Platelet Count 184 10^3/uL (150-450); Red Blood Count 2.86 10^6 /uL (4.18-5.48); Red Cell Distribution Width 16 % (10-15); White Blood Count 8.3 10^3/uL (3.5-10.8)
[2020-08-01 11:54] LABS: ALT 10 U/L (7-52); AST 12 U/L (13-39); Albumin 3.7 g/dL (3.2-5.2); Albumin/Globulin Ratio 1.2 (1-3); Alkaline Phosphatase 82 U/L (35-149); Anion Gap 5 mmol/L (2-11); Blood Urea Nitrogen 28 mg/dL (6-24); C Reactive Protein 15.86 mg/L (<8.01); CO2 Carbon Dioxide 29 mmol/L (22-32); Calcium 8.7 mg/dL (8.6-10.3); Chloride 105 mmol/L (101-111); EGFR African American 47.5 (>60); EGFR Non-African American 39.3 (>60); Globulin 3.1 g/dL (2-4); Glucose 145 mg/dL (70-100); Potassium 4.2 mmol/L (3.5-5.0); Sodium 139 mmol/L (135-145); Total Protein 6.8 g/dL (6.4-8.9)
[2020-08-01 12:06] LABS: Troponin I 0.03 ng/mL (<0.03)
[2020-08-01] MEDS ORDERED: NS 0.9% 1000 ml BAG 500 ML IV ONE (12:09)
[2020-08-01] MEDS ORDERED: Iodixanol (CONTRAST) 320 MG/ML 100 ML SDV IV ONE (12:14)
[2020-08-01] MEDS ORDERED: Ondansetron 4 mg VIAL 2 MG/ML 2 ml VIAL IV PRN (14:40)
[2020-08-01] MEDS ORDERED: Al Hydrox/Mg Hydrox/Simet LIQ 30 ML UDC PO PRN (14:40)
[2020-08-01] MEDS ORDERED: Mometasone/Formoter 200/5 MDI INH SCH (15:00)
[2020-08-01] MEDS: Heparin DRIP 25,000 UNITS BAG 25,000 UNITS/500 ML BAG IV SCH (15:32)
[2020-08-01 16:22] LABS: Troponin I 0.02 ng/mL (<0.03)
[2020-08-01 17:11] LABS: EGFR African American 52.6 (>60); EGFR Non-African American 43.5 (>60)
[2020-08-01] MEDS: SPIRIVA Respimat (tiotropium) 2.5 mcg/inh Inhaler INH SCH ×2 (17:45→18:05)
[2020-08-01] MEDS: Albuterol/Ipratropium NEB.SOL (2.5/0.5 MG) 3 ML NEB.SOLN INH SCH ×3 (17:45→22:46)
[2020-08-01] MEDS: Nystatin TOP POWDER 15 GM BTL TOPICAL SCH (22:29)
[2020-08-01 23:42] LABS: Hematocrit 26 % (42-52); Hemoglobin 8.7 g/dL (14.0-18.0)
[2020-08-02 00:09] LABS: Troponin I 0.04 ng/mL (<0.03)
[2020-08-02] MEDS: Albuterol/Ipratropium NEB.SOL (2.5/0.5 MG) 3 ML NEB.SOLN INH SCH ×4 (03:13→19:57)
[2020-08-02 04:04] LABS: Troponin I 0.03 ng/mL (<0.03)
[2020-08-02 05:51] LABS: ABS Eosinophils 0.5 10^3/ul (0-0.6); ABS Lymphocytes 1.3 10^3/ul (1.0-4.8); ABS Monocytes 0.6 10^3/ul (0-0.8); ABS Neutrophils 5.2 10^3/ul (1.5-7.7); Eosinophil % 7.2 %; Hematocrit 26 % (42-52); Hemoglobin 8.8 g/dL (14.0-18.0); Lymphocyte % 16.5 %; Mean Corpuscular HGB Conc 34 g/dL (31-36); Mean Corpuscular Hemoglobin 33 pg (27-31); Mean Corpuscular Volume 98 fL (80-94); Mean Platelet Volume 7.1 fL (7.4-10.4); Platelet Count 169 10^3/uL (150-450); Red Blood Count 2.67 10^6 /uL (4.18-5.48); Red Cell Distribution Width 16 % (10-15); White Blood Count 7.6 10^3/uL (3.5-10.8)
[2020-08-02 06:09] LABS: Albumin 3.3 g/dL (3.2-5.2); Albumin/Globulin Ratio 1.1 (1-3); Calcium 8.5 mg/dL (8.6-10.3); EGFR Non-African American 41.3 (>60); Globulin 3.1 g/dL (2-4); Potassium 4.2 mmol/L (3.5-5.0); Total Bilirubin 0.5 mg/dL (0.2-1.0); Total Protein 6.4 g/dL (6.4-8.9)
[2020-08-02] MEDS: SPIRIVA Respimat (tiotropium) 2.5 mcg/inh Inhaler INH SCH (07:11)
[2020-08-02] MEDS: Aspirin EC 81 mg TAB.EC (enteric coated) PO SCH (09:39)
[2020-08-02] MEDS: Nystatin TOP POWDER 15 GM BTL TOPICAL SCH ×3 (09:40→22:10)
[2020-08-02] MEDS: Heparin DRIP 25,000 UNITS BAG 25,000 UNITS/500 ML BAG IV SCH (12:11)
[2020-08-02] MEDS ORDERED: Furosemide 20 mg/2 ml IV VIAL IV ONE (20:14)
[2020-08-03] MEDS: Albuterol/Ipratropium NEB.SOL (2.5/0.5 MG) 3 ML NEB.SOLN INH SCH ×5 (02:11→21:01)
[2020-08-03] MEDS: Heparin DRIP 25,000 UNITS BAG 25,000 UNITS/500 ML BAG IV SCH ×2 (04:14→10:12)
[2020-08-03] MEDS: Albuterol 2.5mg/3 ml (0.083%) NEB.SOLN INH PRN (05:43)
[2020-08-03] MEDS ORDERED: Furosemide 40 mg/4 ml IV VIAL IV SLOW PU ONE ×3 (08:16→18:00)
[2020-08-03] MEDS: Aspirin EC 81 mg TAB.EC (enteric coated) PO SCH (09:44)
[2020-08-03] MEDS: Nystatin TOP POWDER 15 GM BTL TOPICAL SCH ×5 (09:48→23:00)
[2020-08-03] MEDS: SPIRIVA Respimat (tiotropium) 2.5 mcg/inh Inhaler INH SCH (10:00)
[2020-08-03] MEDS: Budesonide NEB 0.5 MG/2 ML NEB.SOLN INH SCH (18:58)
[2020-08-04 05:59] LABS: ABS Basophils 0.1 10^3/ul (0-0.2); ABS Eosinophils 0.5 10^3/ul (0-0.6); ABS Lymphocytes 1.5 10^3/ul (1.0-4.8); ABS Monocytes 0.9 10^3/ul (0-0.8); ABS Neutrophils 7.5 10^3/ul (1.5-7.7); Eosinophil % 4.9 %; Hematocrit 27 % (42-52); Hemoglobin 9.3 g/dL (14.0-18.0); Lymphocyte % 14.4 %; Mean Corpuscular HGB Conc 34 g/dL (31-36); Mean Corpuscular Hemoglobin 33 pg (27-31); Mean Corpuscular Volume 97 fL (80-94); Mean Platelet Volume 7.6 fL (7.4-10.4); Platelet Count 199 10^3/uL (150-450); Red Blood Count 2.82 10^6 /uL (4.18-5.48); Red Cell Distribution Width 15 % (10-15); White Blood Count 10.4 10^3/uL (3.5-10.8)
[2020-08-04] MEDS ORDERED: Furosemide 40 mg/4 ml IV VIAL IV SLOW PU ONE ×3 (07:00→21:00)
[2020-08-04] MEDS: Budesonide NEB 0.5 MG/2 ML NEB.SOLN INH SCH ×2 (07:15→19:19)
[2020-08-04] MEDS: SPIRIVA Respimat (tiotropium) 2.5 mcg/inh Inhaler INH SCH (07:15)
[2020-08-04] MEDS: Aspirin EC 81 mg TAB.EC (enteric coated) PO SCH (08:56)
[2020-08-04] MEDS: Nystatin TOP POWDER 15 GM BTL TOPICAL SCH ×4 (08:57→20:38)
[2020-08-04] MEDS: Heparin DRIP 25,000 UNITS BAG 25,000 UNITS/500 ML BAG IV SCH (10:42)
[2020-08-04 13:46] LABS: C Reactive Protein 13.26 mg/L (<8.01); Calcium 9.1 mg/dL (8.6-10.3); EGFR African American 35.1 (>60); Magnesium 1.6 mg/dL (1.9-2.7); Potassium 3.7 mmol/L (3.5-5.0)
[2020-08-04] MEDS: Albuterol 2.5mg/3 ml (0.083%) NEB.SOLN INH PRN (16:36)
[2020-08-04] MEDS ORDERED: Vancomycin per Pharmacy 1 EA NOTE FOLLOW UP SCH (17:00)
[2020-08-04] MEDS ORDERED: Vancomycin 1,750 MG in NS 0.9% 500 ml BAG 500 ML IVPB ONE (17:30)
[2020-08-04] MEDS: Azithromycin 500 mg/250 ml NS 500 MG/250 ML BAG IVPB SCH (18:14)
[2020-08-04] MEDS ORDERED: Aztreonam 2 GM in NS 0.9% 100 ml BAG 100 ML IV SCH (20:00)
[2020-08-04] MEDS: AZTREONAM 1 GM in SODIUM CHLORIDE 0.9% 50 ML IV SCH (22:33)
[2020-08-05] MEDS: AZTREONAM 1 GM in SODIUM CHLORIDE 0.9% 50 ML IV SCH ×4 (05:13→22:06)
[2020-08-05 06:42] LABS: ABS Eosinophils 0.2 10^3/ul (0-0.6); ABS Lymphocytes 1.1 10^3/ul (1.0-4.8); ABS Monocytes 1.2 10^3/ul (0-0.8); ABS Neutrophils 12.7 10^3/ul (1.5-7.7); Eosinophil % 1.1 %; Hematocrit 27 % (42-52); Hemoglobin 8.8 g/dL (14.0-18.0); Lymphocyte % 7.3 %; Mean Corpuscular HGB Conc 33 g/dL (31-36); Mean Corpuscular Hemoglobin 32 pg (27-31); Mean Corpuscular Volume 97 fL (80-94); Mean Platelet Volume 7.9 fL (7.4-10.4); Platelet Count 186 10^3/uL (150-450); Red Blood Count 2.76 10^6 /uL (4.18-5.48); Red Cell Distribution Width 16 % (10-15); White Blood Count 15.1 10^3/uL (3.5-10.8)
[2020-08-05 06:58] LABS: Albumin 3.5 g/dL (3.2-5.2); Albumin/Globulin Ratio 1.1 (1-3); C Reactive Protein 60.18 mg/L (<8.01); Calcium 8.6 mg/dL (8.6-10.3); EGFR Non-African American 25.6 (>60); Globulin 3.2 g/dL (2-4); Magnesium 1.5 mg/dL (1.9-2.7); Potassium 3.3 mmol/L (3.5-5.0); Total Bilirubin 0.7 mg/dL (0.2-1.0); Total Protein 6.7 g/dL (6.4-8.9)
[2020-08-05] MEDS: Budesonide NEB 0.5 MG/2 ML NEB.SOLN INH SCH ×2 (07:17→19:43)
[2020-08-05] MEDS: SPIRIVA Respimat (tiotropium) 2.5 mcg/inh Inhaler INH SCH (07:17)
[2020-08-05] MEDS: Aspirin EC 81 mg TAB.EC (enteric coated) PO SCH (08:57)
[2020-08-05] MEDS: Nystatin TOP POWDER 15 GM BTL TOPICAL SCH ×3 (08:58→22:07)
[2020-08-05] MEDS ORDERED: Furosemide 40 mg/4 ml IV VIAL IV SLOW PU SCH (09:00)
[2020-08-05] MEDS ORDERED: Magnesium Sulfate IV 3 GM in NS 0.9% 100 ml BAG 100 ML IVPB ONE (09:30)
[2020-08-05] MEDS ORDERED: Vancomycin Trough Check NOTE FOLLOW UP ONE (12:00)
[2020-08-05 12:48] LABS: EGFR African American 30.8 (>60); EGFR Non-African American 25.5 (>60)
[2020-08-05] MEDS: Albuterol 2.5mg/3 ml (0.083%) NEB.SOLN INH SCH ×2 (13:01→19:43)
[2020-08-05 13:10] LABS: Vancomycin Random 11.8 mcg/mL; Vancomycin Trough 11.8 mcg/mL
[2020-08-05] MEDS ORDERED: Vancomycin 1,500 MG in NS 0.9% 250 ml 250 ML IVPB SCH (15:00)
[2020-08-05] MEDS ORDERED: Vancomycin 1,250 MG in NS 0.9% 250 ml 250 ML IVPB SCH (15:00)
[2020-08-05] MEDS: Azithromycin 500 mg/250 ml NS 500 MG/250 ML BAG IVPB SCH (20:53)
[2020-08-06] MEDS: Albuterol 2.5mg/3 ml (0.083%) NEB.SOLN INH SCH ×4 (02:04→19:58)
[2020-08-06] MEDS: AZTREONAM 1 GM in SODIUM CHLORIDE 0.9% 50 ML IV SCH ×3 (06:17→22:10)
[2020-08-06 06:36] LABS: ABS Eosinophils 0.3 10^3/ul (0-0.6); ABS Monocytes 1.1 10^3/ul (0-0.8); ABS Neutrophils 12.6 10^3/ul (1.5-7.7); Eosinophil % 1.7 %; Hematocrit 26 % (42-52); Hemoglobin 8.3 g/dL (14.0-18.0); Lymphocyte % 6.6 %; Mean Corpuscular HGB Conc 33 g/dL (31-36); Mean Corpuscular Hemoglobin 32 pg (27-31); Mean Corpuscular Volume 98 fL (80-94); Mean Platelet Volume 7.5 fL (7.4-10.4); Platelet Count 177 10^3/uL (150-450); Red Cell Distribution Width 16 % (10-15)
[2020-08-06 06:54] LABS: Calcium 8.5 mg/dL (8.6-10.3); EGFR African American 36.1 (>60); EGFR Non-African American 29.8 (>60); Potassium 3.7 mmol/L (3.5-5.0)
[2020-08-06] MEDS: Budesonide NEB 0.5 MG/2 ML NEB.SOLN INH SCH ×2 (07:45→19:58)
[2020-08-06] MEDS: SPIRIVA Respimat (tiotropium) 2.5 mcg/inh Inhaler INH SCH (07:50)
[2020-08-06] MEDS ORDERED: Senna TAB 8.6 mg TAB PO PRN (08:19)
[2020-08-06] MEDS ORDERED: Polyethylene Glycol 3350 17 GM PACKET PO PRN (08:19)
[2020-08-06] MEDS ORDERED: Magnesium Hydroxide LIQ 30 ML UDC PO PRN (08:19)
[2020-08-06] MEDS ORDERED: ceFAZolin 1 GM ADVAN 1 GM in NS 0.9% 50 ML 50 ML IVPB SCH (09:00)
[2020-08-06] MEDS ORDERED: Magnesium Hydroxide LIQ 30 ML UDC PO SCH (09:00)
[2020-08-06] MEDS: Aspirin EC 81 mg TAB.EC (enteric coated) PO SCH (09:24)
[2020-08-06] MEDS: Nystatin TOP POWDER 15 GM BTL TOPICAL SCH ×3 (09:25→21:58)
[2020-08-06] MEDS: DOXYcycline 100 MG in NS 0.9% 250 ml 250 ML IVPB SCH ×2 (10:04→22:24)
[2020-08-07] MEDS: Albuterol 2.5mg/3 ml (0.083%) NEB.SOLN INH SCH ×4 (00:47→19:26)
[2020-08-07] MEDS: AZTREONAM 1 GM in SODIUM CHLORIDE 0.9% 50 ML IV SCH ×3 (06:31→22:36)
[2020-08-07] MEDS: Budesonide NEB 0.5 MG/2 ML NEB.SOLN INH SCH ×2 (07:46→19:26)
[2020-08-07 07:47] LABS: EGFR African American 39.8 (>60); EGFR Non-African American 32.9 (>60)
[2020-08-07] MEDS: SPIRIVA Respimat (tiotropium) 2.5 mcg/inh Inhaler INH SCH (07:47)
[2020-08-07] MEDS: Aspirin EC 81 mg TAB.EC (enteric coated) PO SCH (09:07)
[2020-08-07] MEDS: Nystatin TOP POWDER 15 GM BTL TOPICAL SCH ×3 (09:08→21:08)
[2020-08-07] MEDS: DOXYcycline 100 MG in NS 0.9% 250 ml 250 ML IVPB SCH ×2 (09:09→21:23)
[2020-08-07] MEDS ORDERED: Iron Sucrose 200 MG in NS 0.9% 100 ml BAG 100 ML IVPB ONE (12:00)
[2020-08-07] MEDS ORDERED: Furosemide 40 mg/4 ml IV VIAL IV ONE (14:09)
[2020-08-07] MEDS ORDERED: Vancomycin Trough Check NOTE FOLLOW UP ONE (14:30)
[2020-08-08] MEDS: Albuterol 2.5mg/3 ml (0.083%) NEB.SOLN INH SCH ×4 (00:40→19:48)
[2020-08-08] MEDS: Budesonide NEB 0.5 MG/2 ML NEB.SOLN INH SCH ×2 (07:09→19:49)
[2020-08-08] MEDS: AZTREONAM 1 GM in SODIUM CHLORIDE 0.9% 50 ML IV SCH ×3 (07:24→21:00)
[2020-08-08] MEDS: SPIRIVA Respimat (tiotropium) 2.5 mcg/inh Inhaler INH SCH (07:41)
[2020-08-08 07:44] LABS: EGFR African American 37.1 (>60); EGFR Non-African American 30.7 (>60)
[2020-08-08] MEDS: Aspirin EC 81 mg TAB.EC (enteric coated) PO SCH (09:58)
[2020-08-08] MEDS: Nystatin TOP POWDER 15 GM BTL TOPICAL SCH ×3 (10:01→19:43)
[2020-08-08] MEDS: DOXYcycline 100 MG in NS 0.9% 250 ml 250 ML IVPB SCH ×2 (10:02→22:00)
[2020-08-08] MEDS ORDERED: Iron Sucrose 200 MG in NS 0.9% 100 ml BAG 100 ML IVPB ONE (12:30)
[2020-08-09] MEDS: Albuterol 2.5mg/3 ml (0.083%) NEB.SOLN INH SCH ×4 (02:15→19:30)
[2020-08-09] MEDS: AZTREONAM 1 GM in SODIUM CHLORIDE 0.9% 50 ML IV SCH ×3 (06:50→23:27)
[2020-08-09 07:05] LABS: ABS Basophils 0.1 10^3/ul (0-0.2); ABS Eosinophils 0.7 10^3/ul (0-0.6); ABS Lymphocytes 1.1 10^3/ul (1.0-4.8); ABS Monocytes 0.9 10^3/ul (0-0.8); ABS Neutrophils 5.9 10^3/ul (1.5-7.7); Eosinophil % 7.6 %; Hematocrit 26 % (42-52); Hemoglobin 8.5 g/dL (14.0-18.0); Lymphocyte % 12.9 %; Mean Corpuscular HGB Conc 33 g/dL (31-36); Mean Corpuscular Hemoglobin 32 pg (27-31); Mean Corpuscular Volume 98 fL (80-94); Mean Platelet Volume 7.6 fL (7.4-10.4); Platelet Count 240 10^3/uL (150-450); Red Blood Count 2.65 10^6 /uL (4.18-5.48); Red Cell Distribution Width 15 % (10-15); White Blood Count 8.6 10^3/uL (3.5-10.8)
[2020-08-09 07:16] LABS: Calcium 8.7 mg/dL (8.6-10.3); EGFR African American 42.5 (>60); EGFR Non-African American 35.1 (>60); Potassium 3.9 mmol/L (3.5-5.0)
[2020-08-09] MEDS: Aspirin EC 81 mg TAB.EC (enteric coated) PO SCH (07:42)
[2020-08-09] MEDS: SPIRIVA Respimat (tiotropium) 2.5 mcg/inh Inhaler INH SCH (09:19)
[2020-08-09] MEDS: Budesonide NEB 0.5 MG/2 ML NEB.SOLN INH SCH ×2 (09:19→19:30)
[2020-08-09] MEDS: Nystatin TOP POWDER 15 GM BTL TOPICAL SCH ×3 (09:46→23:27)
[2020-08-09] MEDS: DOXYcycline 100 MG in NS 0.9% 250 ml 250 ML IVPB SCH ×2 (09:51→21:41)
[2020-08-10] MEDS: Albuterol 2.5mg/3 ml (0.083%) NEB.SOLN INH SCH ×4 (01:33→21:30)
[2020-08-10 05:35] LABS: Hematocrit 28 % (42-52); Mean Corpuscular HGB Conc 33 g/dL (31-36); Mean Corpuscular Hemoglobin 32 pg (27-31); Mean Corpuscular Volume 98 fL (80-94); Mean Platelet Volume 7.7 fL (7.4-10.4); Platelet Count 275 10^3/uL (150-450); Red Cell Distribution Width 16 % (10-15); White Blood Count 10.1 10^3/uL (3.5-10.8)
[2020-08-10 05:52] LABS: Calcium 8.7 mg/dL (8.6-10.3); Magnesium 1.8 mg/dL (1.9-2.7); Potassium 4.2 mmol/L (3.5-5.0)
[2020-08-10] MEDS: AZTREONAM 1 GM in SODIUM CHLORIDE 0.9% 50 ML IV SCH (06:02)
[2020-08-10] MEDS: Budesonide NEB 0.5 MG/2 ML NEB.SOLN INH SCH (07:15)
[2020-08-10] MEDS: SPIRIVA Respimat (tiotropium) 2.5 mcg/inh Inhaler INH SCH (07:15)
[2020-08-10 07:32] LABS: ABS Basophils 0.1 10^3/ul (0-0.2); ABS Eosinophils 0.7 10^3/ul (0-0.6); ABS Lymphocytes 1.7 10^3/ul (1.0-4.8); ABS Neutrophils 6.7 10^3/ul (1.5-7.7); Eosinophil % 6.8 %; Lymphocyte % 16.9 %; Nucleated Red Blood Cells % 0.1
[2020-08-10 07:33] LABS: Polychromasia 1+
[2020-08-10] MEDS: Aspirin EC 81 mg TAB.EC (enteric coated) PO SCH (08:50)
[2020-08-10] MEDS: Nystatin TOP POWDER 15 GM BTL TOPICAL SCH ×2 (08:50→13:51)
[2020-08-10] MEDS: DOXYcycline 100 MG in NS 0.9% 250 ml 250 ML IVPB SCH (08:50)
[2020-08-10] MEDS ORDERED: Furosemide 20 mg/2 ml IV VIAL IV ONE (12:47)
[2020-08-10 19:15] VITALS: BP 112/54
[2020-08-11] MEDS: Albuterol 2.5mg/3 ml (0.083%) NEB.SOLN INH SCH ×2 (00:59→07:06)
[2020-08-11] MEDS: SPIRIVA Respimat (tiotropium) 2.5 mcg/inh Inhaler INH SCH (07:07)
== END 2020-08-10 19:10 | disposition home or self-care (01) | DRG 175 ==
LOC: ED 09:25 → MED 15:52
PROVIDERS: ADMIT Hospitalist; ATTEND Pediatrics